=== PATIENT | female | born 1935 | race Caucasian/White ===

== ENCOUNTER 2016-08-27 13:27 | Inpatient (IN) | payer MEDICARE ==
[~2016-08-27] VITALS: Ht 170.2 cm; Wt 70.0 kg
--- NOTE | 2016-08-27 13:41 | ED.REPORT ---
HPI-General Illness Date of Service Aug 27, 2016 ED Provider: Jack Dejesus MD Pt is a demented 80 y/o female with a history of CVA who presents to ED via EMS for a fever. All history is from the family and EMS as the patient is demented and cannot provide any history. This is a patient who has a history of chronic CVAs, his nonambulatory, noncommunicative at baseline-the rest the family is wanted a retirement facility, but that the has declined, and has been having oil burner helped caring for. However today the fell and broke his hip and is being admitted, and the lipase was being checked on in the interim, she is to feel hot, and identified to have a temperature. So she was brought in. There are no other complaints, no known cough, shortness of breath , vomiting diarrhea-the patient does have a chronic indwelling Oneill, and history of a chronic sacral decubitus. The patient is on no medications. Nursing Notes Stated Complaint: SEPSIS Nursing Notes Reviewed: Yes ([employer], marianna, meds not reconciled CC is "SEPSIS ") General Time Seen by MD: 13:39 Chief Complaint Fever Hx Obtained From: Other family..., EMS Arrived By: Ambulance Sudden in Onset?: No Onset Occurred: Onset unknown Recent Healthcare: Recent hospitalization, Recent testing Past Medical History Past Medical History Notes: Family states patient is not on any medications Past Medical History History of debilitating stroke years ago, aphasic, with bilateral contractures, nonambulatory (patient fed via syringe by mouth, lives at home with oil burner support) History of decubitus Reports: Stroke Past Surgical History No known surgical history Smoking History Never Smoker Social History Was living with , with oil burner support-today 2016, patient's is being admitted for hip fracture. Family history requesting SNF placement POLST form is DNR/DNI in setting of arrest, otherwise limited intervetions Alcohol Use: Denies alcohol use (family) Drug Use: Denies drug use Other Social History: Good social support, Review of Systems Unable to Obtain ROS Patient condition Physical Exam Vital Signs Vital Signs Date Time Temp Pulse Resp B/P Pulse Ox O2 Delivery O2 Flow Rate FiO2 08/27/16 16:11 99 25 153/82 96 08/27/16 13:46 38.2 110 32 191/96 94 Room Air Initial VS: Reviewed, Unavailable (none on chart, ordered), Vital signs abnormal Head / Eyes: Atraumatic Neck: Supple, Non-tender, Full range of motion Abdomen / GI: Soft, Non-tender Extremities: Vascular intact, Neuro intact, No swelling, No tenderness Skin: Warm, Dry, No cyanosis Neurologic: Alert, Oriented, Nonfocal Alertness: Positive: Responds to pain stimuli, Negative: Responds to verb stimuli Appearance / Presentation: Positive: Cachectic Patient appears chronically ill, she is cachectic, she is debilitated with bilateral upper and lower extremity contractures. Her eyes or respond to voice, but opens her eyes to painful stimuli. Apparently is close to her baseline status. Although initial vitals is respiratory 35 she does not appear tachypneic or dyspneic clinically, in repeat vitals indicated respiratory rate of 15 Pt does not respond to verbal stimuli but responds to obnoxious stimuli. Patient is nonverbal at baseline, nonambulatory Head / Eyes: Atraumatic, Normocephalic Patient is edentulous with a withdrawn face Neck: Supple, Full range of motion, No swelling, Non-tender Respiratory / Chest: Breath sounds NL, No respiratory distress, No rales, No rhonchi, No wheezing Cardiovascular: Regular rhythm, Heart sounds NL, Cap refill not delayed, Peripheral circulation NL Heart Rate / Rhythm: Positive: Tachycardia (fever appropriate) Abdomen: Non-tender, No guarding, No rebound Upper Extremities Patient with contractures of both upper extremities Patient with contractures of both lower extremities and feet Interpretation & Diagnostics Lab Results Interpretation Result Diagram: 08/27/16 1455 08/27/16 1455 Test 08/27/16 14:55 08/27/16 15:40 White Blood Count 6.3th/mm3 (3.8-10.1) Red Blood Count 4.49mil/mm3 (3.90-5.20) Hemoglobin 13.7g/dL (12.0-15.6) Hematocrit 42.7% (35.0-46.0) Mean Corpuscular Volume 95.1fL (81-100) Mean Corpuscular Hemoglobin 30.5pg (27.0-35.0) Mean Corpuscular Hemoglobin Concent 32.1% (32.0-37.0) Red Cell Distribution Width 14.4% (12.3-15.4) Platelet Count 248bil/L (150-400) Neutrophils (%) (Auto) 85.7% (40-74) Lymphocytes (%) (Auto) 8.3% (14-46) Monocytes (%) (Auto) 5.1% (4-12) Eosinophils (%) (Auto) 0.2% (0-5) Basophils (%) (Auto) 0.5% (0-3) Sodium Level 136mEq/L (134-144) Potassium Level 4.7mEq/L (3.5-5.2) Chloride Level 101mEq/L (97-108) Carbon Dioxide Level 22mmol/L (18-29) Blood Urea Nitrogen 18mg/dL (8-27) Creatinine 0.37mg/dL (0.57-1.00) Estimat Glomerular Filtration Rate 241mL/min (>59) Glucose Level 136mg/dL (60-99) Lactic Acid Level 1.4mmol/L (0.4-2.0) Calcium Level 8.5mg/dL (8.5-10.1) Total Bilirubin 0.8mg/dL (0.0-1.2) Aspartate Amino Transf (AST/SGOT) 25U/L (0-50) Alanine Aminotransferase (ALT/SGPT) 20U/L (0-32) Alkaline Phosphatase 78U/L (25-165) Total Protein 6.3g/dL (6.4-8.4) Albumin 3.2g/dL (3.4-5.0) Urine Color Yellow (YELLOW) Urine Appearance Slightly cloudy Urine pH 7.0 (5.0-8.0) Urine Specific [place] 1.025 (1.003-1.035) Urine Protein 30mg/dL (NEG,TRACE) Urine Glucose (UA) Negativemg/dL (NEGATIVE) Urine Ketones Tracemg/dL (NEGATIVE) Urine Occult Blood Moderate (NEGATIVE) Urine Nitrite Positive (NEGATIVE) Urine Bilirubin Negative (NEGATIVE) Urine Urobilinogen Normalmg/dL (NORMAL) Urine Leukocyte Esterase Small (NEGATIVE) Urine RBC 3-10/hpf (0-2) Urine WBC 0-5/hpf (0-5) Urine Epithelial Cells None/hpf (NONE-MOD) Urine Crystals None seen (NONE SEEN) Urine Bacteria Moderate/hpf (NONE-FEW) Urine Hyaline Casts None/lpf (NONE) Urine Granular Casts None seen (NONE SEEN) Urine Waxy Casts None seen (NONE SEEN) Urine Red Blood Cell Casts None seen (NONE SEEN) Urine White Blood Cell Casts None seen (NONE SEEN) Urine Mucus None seen (None Seen) Urine Trichomonas None seen (NONE SEEN) Urine Yeast None (NONE SEEN) Urinalysis Comment None Urine Culture Reflexed Indicated Lab Results Interpretation: CBC normal CMP normal UA from Oneill, abnormal, positive bacteria, but is a chronic Oneill sample so cultures pending, difficult to interpret Blood cultures 2 pending Lactic acid normal Influenza positive FLu A NOTE: Patient's 's influenza A positive Influenza screen pending ECG Interpretation ECG Interpretation: Sinus tachycardia, Rate 112 Time: 14:11 Interpreted by: ED physician X-Ray Chest Interpretation Chest Xray Interpretation: IMPRESSION: No acute cardiopulmonary disease process within the limitations caused by patient's hand over the left lung base. Dictated by: Farzana Root MD, PhD on 08/27/2016 at 14:15 Approved by: Farzana Root MD, PhD on 08/27/2016 at 14:15 View: Portable, 1 view Re-Eval/Medical Decision Med Decision/Clinical Course This is a chronically debilitated 80-year-old female which the family is wanted to be in a retirement facility sometime, but that has been helping care for with oil burner assistance at home. However today the fell, broke his hip and is being admitted also to [facility]. Absent oil burner and family went to check on the (this patient), and found her febrile, so she was transported here as well. (Both live in [facility] was on divert), Patient is noncommunicative, with severe contractures, is fed apparently by liquid syringe. She is on no medications at baseline. Family is here and does request a retirement facility placement be evaluated obviously the is in no shape to care for her at this time. Initial vitals are quite concerning, and concern for the possibly of sepsis- with subsequent vitals are significantly improved. The patient has no laboratory markers of sepsis. Patient received a Tylenol suppository, systolically her she could take by mouth well. She will need is swallow eval, so I ordered a speech evaluation. Chest x-rays negative. Blood work is normal. Once the swab is pending. The differential also includes a UTI whic the family is concerned about, the patient does have a chronic Oneill making interpretation of UA difficult. Patient is being covered with ceftriaxone while waiting for formal urine cultures, It turns out the has influenza A, increasing probability of influenza as a potential cause. I am awaiting a speech evaluation and to help determine that the patient can actually receive oral Tamiflu. Patient is being admitted for continued management, and subsequent placement. Addendum: Patient positive for flu A. Page speech, but it turns out at the holiday they may not be available. I am not convinced the patient's a good candidate for by mouth Tamiflu at this time, I would wait speech approval prior to initiation. Source of Hx: Old records (none in EMR) Time of Eval: 15:45 Patient Status: Condition improved Re-Evaluation/Progress Note: Vitals are much improved, respirations 15, patient's not visibly tachypneic or dyspneic. Patient's husbands influence is positive increasing likelihood of influenza. Consultation : Referral / Consult Name: Alissa Bonilla MD Call Returned at: 16:02 Cotton Converter: Will see patient, Accepts admit Differential Diagnosis: Positive: Influenza, Negative: Abdominal pain, Allergies, Neutropenia, Pneumonia Counseled Regarding: Need for admission Discharge & Departure Primary Impression: Fever Fever type: unspecified Qualified Code: R50.9 - Fever, unspecified Additional Impressions: Influenza A UTI (urinary tract infection) Urinary tract infection type: catheter-associated UTI Encounter type: initial encounter Qualified Code: T83.51XA - Infection and inflammatory reaction due to indwelling urinary catheter, initial encounter Disposition: ADMITTED TO HOSPITAL Discharge Condition All VS Reviewed: Yes Condition: Stable Referrals: Shannan Doyle PA-C Attestation Portions of this note were transcribed by Chris Ellis and Gamaliel Galvez. I, Dr. Dejesus personally performed the history, physical exam and medical decision -making; I reviewed and confirmed the accuracy of the information in the transcribed note. Signed by:Chris Ellis and Brianda Mejia, 08/27/16 and 15:07. copies to: Shannan Doyle PA-C, Matthew F MD Aug 27, 2016 13:41 Chris Ellis Aug 27, 2016 13:58 GAMALIEL GALVEZ Aug 27, 2016 15:07
[2016-08-27 13:46] VITALS: BP 191/96; PULSE 110; RESP 32; O2SAT 94
--- NOTE | 2016-08-27 14:16 | DRSVH ---
PROCEDURE: X-RAY CHEST ONE VIEW, PORTABLE ([id number]) INDICATIONS: sepsis TECHNIQUE: One view of the chest was acquired. COMPARISON: None. FINDINGS: Surgical changes and devices: None. Lungs and pleura: No pleural effusions or pneumothorax. Lungs are clear. Left lung base is obscured by patient's left hand. Mediastinum: Mediastinal contours appear normal. Heart size is normal. Bones and chest wall: No suspicious bony lesions. Overlying soft tissues appear unremarkable. IMPRESSION: No acute cardiopulmonary disease process within the limitations caused by patient's hand over the left lung base. Dictated by: Farzana Root MD, PhD on 08/27/2016 at 14:15 Approved by: Farzana Root MD, PhD on 08/27/2016 at 14:15
[2016-08-27 15:11] LABS: BASOPHILS % (AUTO) 0.5 % (0-3); EOSINOPHILS % (AUTO) 0.2 % (0-5); MONOCYTES % (AUTO) 5.1 % (4-12); Mean Corpuscular Hemoglobin 30.5 pg (27.0-35.0); Mean Corpuscular Volume 95.1 fL (81-100); NEUTROPHILS % (AUTO) 85.7 % (40-74); Platelet Count 248 bil/L (150-400)
[2016-08-27] MEDS ORDERED: cefTRIAXone Inj 2,000 MG in IV Premix 1 EACH IV ONE (15:45)
[2016-08-27] MEDS ORDERED: 0.9% Sodium Chloride 1,000 ML IV ONE (15:45)
[2016-08-27 16:11] VITALS: BP 153/82; PULSE 99; RESP 25; O2SAT 96
[2016-08-27 16:25] LABS: APPEARANCE,URINE SLIGHTLY CLOUDY (CLEAR,HAZY); COLOR,URINE YELLOW (YELLOW); OCCULT BLOOD,URINE MODERATE (NEGATIVE)
[2016-08-27 16:26] LABS: UROBILINOGEN,URINE NORMAL (NORMAL)
[2016-08-27] MEDS ORDERED: [UNRECOGNIZED DRUG - REMARK] PO (16:54)
[2016-08-27 17:09] VITALS: BP 147/69; PULSE 91; RESP 26
[2016-08-27] MEDS ORDERED: Alum-Mag Hydrox-Simeth 30 mL Suspension PO PRN (17:25)
[2016-08-27] MEDS ORDERED: Ondansetron 2 mg/mL 2 mL Inj IVPUSH PRN (17:25)
[2016-08-27 18:27] VITALS: BP 165/74; PULSE 92; RESP 18; O2SAT 97
--- NOTE | 2016-08-27 18:39 | NUR ---
Admit/Skin Pt arrived to floor ~1745. non verbal d.t hx of cva; cleaned up and skin checked with EXCEL DEVELOPER (See admit.) Nino has odor. Report given to NOC shift to complete admit.
[2016-08-27 19:25] VITALS: BP 160/71; PULSE 88; RESP 17; O2SAT 95
--- NOTE | 2016-08-27 20:23 | PCM.HPMED ---
Subjective Date of Service Aug 27, 2016 Primary Provider: Admitting Physician: Alissa Bonilla MD Primary Care Physician: Caesar Denis MD Attending Physician: Alissa Bonilla MD Chief Complaint: HISTORY was OBTAINED FROM who is admitted for hip fracture / MEDITECH NOTES History of present illness 80-year-old female with CVAs/dementia/nonverbal/contractures/fed by mouth syringe by primary complex care nurse practitioner her , presented to the emergency department with fever 102, respiratory rate 25. EMS bolused 1 L normal saline. Indwelling Oneill is cloudy. indicates that she never has had UTIs. Has been does not seem to be the best historian as he is ill as well. In the ER 198/120, T102, respiratory rate 30s, sinus rhythm 112, no hypoxia. Chest x-ray negative, influenza positive since is also influenza positive Review of Systems unable to assess given that patient at baseline is nonverbal with dementia FAMILY HX of natural causes as indicated by her MEDICATIONS none Past Medical/Surgical HX History of debilitating stroke, aphasic, with bilateral contractures, nonambulatory (patient fed via syringe by mouth, lives at home with bi solutions architect support) History of decubitus Social no EtOH Allergies Coded Allergies: No Known Allergies (Unverified , 08/27/16) [facility] Social History Smoking Status: Never Smoker Exam Vital Signs Vital Sign - Last Date Time Temp Pulse Resp B/P Pulse Ox O2 Delivery O2 Flow Rate FiO2 08/27/16 18:27 37.3 92 18 165/74 97 Room Air Lab and Diagnostics Labs Exam on admission On room air NAD ASLEEP DOES NOT WAKE UP ON VERBAL COMMAND NC/AT no icterus no injected eyes PERRL / no oral lesions / hearing intact Supple neck CTAB equal chest rise / no accessory muscle use / speaks in full sentences / no rrw RRR S1 S2 / no mrg / 2+ radial pulses Soft nt nd + BS no hepatosplenomegaly Moderate edema buttocks/thighs, mild edema shins no cyanosis no ecchymosis of lower extremities No rash / no jaundice Chronic contracture appearing upper and lower extremities Oneill catheter urine is cloudy EKG SINUS RHYTHM [address] CHANGES CXR negative acute findings although obscured by contractured upper extremities UA nitrate positive Influenza A positive Result Diagram: 08/27/16 1455 08/27/16 1455 Assessment & Plan Active issues and reason for admission 80-year-old female, with baseline aphasia/contractures, admitted for sepsis due to UTI and Influenza A. Influenza A positive, contractured arm obscures chest x-ray findings --Tamiflu after speech evaluates patient -- Already on Rocephin for UTI -- Duo nebs UTI -- Change chronic indwelling catheter, pending urine culture Chronic issues known prior to admission, present on admission Debilitating CVA, bedbound, aphasic, contractured limbs Diet pending nutrition consult, pending speech consult, D5 1/2NS 20K 50cc/hr x500cc DVT prophylaxis lovenox Code DNR. POLST Form in chart Disposition pending speech therapy, baseline has been feeds her with syringe by mouth at home family indicated to the ER staff they would like long-term placement for the patient. has also been admitted (hip fracture and influenza pneumonia) who is her primary bi solutions architect Alissa Bonilla MD Aug 27, 2016 20:23 Assessment and plan were discussed with patient family. Alissa Bonilla MD Aug 27, 2016 20:23
[2016-08-27] MEDS: Oseltamivir 6 mg/mL 60 mL Suspension PO SCH (20:30)
[2016-08-27] MEDS: D5 0.45% NaCl + KCl 20 mEq/L 500 ML IV SCH (21:17)
[2016-08-27] MEDS: Albuterol-Ipratropium 3 mL Inhalation Solution NEB SCH (22:41)
[2016-08-27 22:44] VITALS: PULSE 68; RESP 22; O2SAT 96
[2016-08-28] VITALS (9 sets, daily range): BP systolic 123–151; BP diastolic 70–77; PULSE 68–94; RESP 16–22; O2SAT 93–97
[2016-08-28 05:48] LABS: BASOPHILS % (AUTO) 0.3 % (0-3); EOSINOPHILS % (AUTO) 0 % (0-5); MONOCYTES % (AUTO) 10.5 % (4-12); Mean Corpuscular Hemoglobin 30.6 pg (27.0-35.0); Mean Corpuscular Volume 94.5 fL (81-100); NEUTROPHILS % (AUTO) 71.7 % (40-74); Platelet Count 244 bil/L (150-400)
--- NOTE | 2016-08-28 05:53 | NUR ---
Skin care Initiated pressure ulcer protocol for multiple areas of concern on skin, all covered with Mepilex. Q2 hour turns, pt is has severe contractures and unable to assist with any movement. Heels floated on pillows. Indwelling maloney changed per order. Strict NPO status until swallow eval; baseline is that sericulture teacher feeds pt with pureed food via syringe. IV fluids infusing. Pt shows no signs of discomfort or distress, occasional cough or throat sounds. Frequent rounding as pt unable to access call light due to immobility.
[2016-08-28] MEDS: D5 0.45% NaCl + KCl 20 mEq/L 500 ML IV SCH (06:14)
[2016-08-28] MEDS: Albuterol-Ipratropium 3 mL Inhalation Solution NEB SCH ×4 (07:33→20:01)
[2016-08-28] MEDS: Oseltamivir 6 mg/mL 60 mL Suspension PO SCH ×2 (08:30→22:13)
--- NOTE | 2016-08-28 10:56 | NUR ---
Evaluation completed. Please go to "Notes" then click on "Assessments and Notes" (bottom left corner of screen). Then select appropriate discipline tab on top of screen.
[2016-08-28] MEDS ORDERED: Vancomycin 1 Gm/200 mL D5W Premix IV SCH (11:00)
[2016-08-28] MEDS: D5 0.45% NaCl + KCl 20 mEq/L 1,000 ML IV SCH (11:17)
--- NOTE | 2016-08-28 12:58 | NUR ---
SKIN/MEDS Patient was seen by [facility]Damon Morrison Pressure ulcers on her RLE and sacral area (Stage 2) was assessed and dressing was changed by [facility]. Pressure ulcers are present on admit. Turned and repositioned Q 2 hrs. Seen and examined by SPT. She continues to be NPO. Meds are withheld. Dr. Morales is aware of this. Care continues.
--- NOTE | 2016-08-28 15:14 | NUR ---
NUTRITION ASSESSMENT: ASSESS: Pt is an 80yo F admitted for sepsis due to UTI and influenza A. Pt is non-verbal at baseline and has chronic dysphagia. Per H&P, pt is fed by her via a syringe w/pureed foods. ST has evaluated pt and made her strict NPO. Received written orders per Dr. Morales to start TF. PMHX: CVA, Dementia LABS: Reviewed. Manufacturing Baker .37, Glu 134, Ca 8.1, Alb 2.9 MEDS: Reviewed. GI: BMx1 08/28 SKIN: Tello 6. Stg 2 PU on RLE and sacral area CURRENT WTS: 50.8kg, BMI 17.5kg/m2 DIET: strict NPO per EST. NEEDS: wt gain, stg 2 PU Kcals: 1525-1780kcal/day (30-35kcal/kg) Pro: 60-75g/day (1.2-1.5g/kg) Fluids: 1525ml/day (1ml/kcal/kg) NUTRITION DIAGNOSIS: 1.) Inadequate oral intake related to decreased ability to consume sufficient energy as evidenced by current NPO status and need for TF to provide adequate nutrition 2.) Chew/swallow difficulty related to chronic aphasia and dysphagia as evidence by strict NPO diet order per NUTRITION INTERVENTION: 1.) Received orders per Dr. Morales to start TF. Recommend Jevity 1.5 @50ml/hr to provide 1725kcal and 73g pro (100% estimated needs). As pt has likely not received adequate nutrition prior to admit, recommend start TF at 10ml/hr and slowly advance towards goal by 10ml q 6 hrs. Flush 40ml q 4 hrs while on IVF. If IVF stopped, recommend increase fluid flush to 85ml q 3hrs. 2.) Diet advance per . MONITOR / EVAL: NPO, ST, TF start/dwayne, labs, wt, POC, nutrition status. Will continue to monitor per high nutrition risk guidelines.
--- NOTE | 2016-08-28 15:19 | NUR ---
Wound Care Pressure ulcer protocol received, Pt seen at bedside. Noncommunicative bedbound female on a [facility] bed, wrist and elbows in a contracted state as are her ankles.. She has been cared for in her home by her who has now fallen and broken his hip. Skin issues include. Right posterior calf Stage 2 PU 1 cm x 0.5 cm x 0.2 cm (POA). Sacral stage 2 PU, 1 cm x 2 cm x 0.2 cm (POA). Both wounds were cleaned with saline and gauze then redressed with mepilex adhesive foam dressings. Pt had no other pressure related skin issues, pt was incontinent of stool so sacral dressings will need to be changed PRN for soiling. Otherwise heels to be floated, frequent repositioning and dressing changes by nursing.
[2016-08-28] MEDS: cefTRIAXone Inj 1,000 MG in IV Premix 1 EACH IV SCH (15:29)
--- NOTE | 2016-08-28 15:50 | PCM.PHAPRO ---
Progress Vancomycin Management by Pharmacy: -Indication: empiric therapy for + blood cultures, g+ cocci, staph? -Concurrent antibiotics: Ceftriaxone 1gm iv q24hrs for uti on admission -80 yo female admitted last night, positive for influenza A -slight temp, wbc 3.4, serum creatinine 0.37, est clearance ~ 45ml/min, wt 50kg -Plan: gave a loading dose of Vancomycin 1gm at 11 am today. Subsequent doses shall be 750mg iv [id number] Trough level shall be drawn prior to 4th dose (1030 on 08/31) or sooner if serum creatinine elevates Rianna Denis [facility] Aug 28, 2016 15:50
--- NOTE | 2016-08-28 16:49 | DRSVH ---
PROCEDURE: X-RAY CHEST ONE VIEW, PORTABLE ([id number]) INDICATIONS: CONFIRM DOBHOF TUBE PLACEMENT TECHNIQUE: One view of the chest was acquired. COMPARISON: [facility], CR, XR CHEST 1VW (PORTABLE), 08/27/2016, 13:53. FINDINGS: Surgical changes and devices: Interval placement of feeding tube is present with distal tip below the left hemidiaphragm. Lungs and pleura: No pleural effusions or pneumothorax. Lungs are clear, noting incomplete evaluati on of left base secondary to patient's overlying hand.. Mediastinum: Mediastinal contours appear normal. Heart size is normal. Bones and chest wall: No suspicious bony lesions. Overlying soft tissues appear unremarkable. IMPRESSION: Feeding tube placement as above. Dictated by: Astrid Avalos M.D. on 08/28/2016 at 16:47 Approved by: Astrid Avalos M.D. on 08/28/2016 at 16:47
--- NOTE | 2016-08-28 19:50 | NUR ---
GI/ACTIVITY Feeding tube was inserted by Jacklyn Cochran RN. CXR done. Dr. Morales made aware. Per MD advance FT 6 more inches. FT advanced as ordered and tube feeding started. CXR in the morning. Via FELDT scale patients pain level is 0/10. No emesis noted. Turned and repositioned Q 2 hrs. Dressing in her sacral area and RLE is CDI. IFC intact and draining to kristal colored UO. Addendum: 08/28/16 at 1958 by SARBJIT REED RN CRITICAL LAB Dr. Morales made aware of + blood cultures this AM and this evening. Patient was started on IV Vanco this morning.
--- NOTE | 2016-08-28 22:51 | PCM.PNMED ---
Subjective Date of Service Aug 28, 2016 Subjective Patient is poorly responsive laying supine in bed with flexion contractures. Exam Vital Signs Vital Sign - Last Date Time Temp Pulse Resp B/P Pulse Ox O2 Delivery O2 Flow Rate FiO2 08/28/16 20:41 37.3 94 16 127/70 96 Room Air Intake and Output 08/27/16 08/27/16 08/28/16 Cumulative From/Thru 15:00 23:00 07:00 08/27/16 16:30 - 08/28/16 06:40 Intake Total 950 ml 1056 ml 2006 ml Output Total 500 ml 500 ml Balance 950 ml 556 ml 1506 ml Intake Oral 0 ml 0 ml IV Total 950 ml 1056 ml 2006 ml Output Urine Total 500 ml 500 ml # Bowel Movements 1 1 Exam General: Patient is poorly responsive, laying supine in bed with flexion contractures HEENT: Head is atraumatic normocephalic. Eyes: Pupils are equally round and reactive to light and accommodation. Extraocular muscles could not be tested. Sclera are white anicteric. Subconjunctival mucosa is pink. Ears and nose are unremarkable. Oropharynx: Is very difficult to visualize. Neck: Is fairly supple, there are no nodes, or masses or tenderness. Chest: Sounds are very coarse with upper airway congestion. Therefore, difficult to discern type of lower adventitious sounds Heart: Rate, rhythm is regular. There is no murmur, rub or gallop. Abdomen: Good bowel sounds are present. Abdomen is soft, nontender, no organomegaly or masses were appreciated. Extremities: Are symmetrical and well perfused. There is no edema, there is no cellulitis, no rash. Neurologic: There are no focal neurological deficits. Cranial nerves II through XII are intact. There are no sensory or motor deficits. Psychiatric: Patients mood is calm and shows no sign of agitation. Genital: Deferred Rectal: Deferred Lab and Diagnostics Result Diagram: 08/28/16 0500 08/28/16 0453 Microbiology Microbiology GUSTAVO INFLUENZA RAPID AG SCREEN Final 08/27/16-1623 RESULT POSITIVE FOR FLU A NEGATIVE FOR FLU B This rapid assay is a screen test only for Influenza A&B and does not definitively rule out the presence of FLU A & B or other respiratory viral pathogens. The assay's sensitivity varies on the specimen type submitted. Nasal washes are optimum. Recommend respiratory viral cultures and DFA to confirm negative screens and rule out other viral pathogens. Per CDC, the sensitivity of this method is approximately 50% for H1N1. A negative result does NOT rule out Novel H1N1 (Swine Flu) TIME CALLED: 1623 FLOOR/DOCTOR: DEEPAK Sanz Name: EMMA LOPEZ Age/Sex: 80/F Attend Dr: Hoang Bonilla MD Acct: [id number] Unit: [id number] Status: ADM IN Location: [facility] [place] 1005-1 Re08/27/16 Disch: Specimen: [id number] Collected: 08/27/16 Status: COMP Req#: [id number] Received: 08/27/16160 Source: URINE CC Sp Desc : DELMY Justice Dr: Jack Dejesus MD Ordered: URINE CULT Procedure Result Verified Site Microbiology GUSTAVO CULT URINE Final 08/28/16-0909 Organism 1 MIXED UROGENITAL CORETTA U COLONY COUNT/QUANTITY 50,000-100,000 CFU/ml Name: EMMA LOPEZ Age/Sex: 80/F Attend Dr: Hoang Bonilla MD Acct: [id number] Unit: [id number] Status: ADM IN Location: [facility] 1005-1 Re08/27/16 Disch: Specimen: [id number] Collected: 08/27/16 Status: RES Req#: [id number] Received: 08/27/16-160 Source: BLOOD Sp Desc : AA Subm Dr: Jack Dejesus MD Ordered: Comments: Collected by Nurse/Unit? Y/N N Procedure Result Verified Site Microbiology GUSTAVO CULTURE BLOOD Preliminary 08/28/16-180 Organism 1 POSITIVE BLOOD CULTURE GRAM STAIN RESULT GRAM POSITIVE COCCI ?STAPH BC BOTTLE Isolated from Aerobic Bottle of Set Drawn DATE CALLED: 08/28/16 TIME CALLED: 0948 CALLED BY: MACIEJ FLOOR/DOCTOR: FRANCIS Barbosa BC READ BACK Y TYPE OF DRAW PERIPHERAL DRAW TIME OF POSITIVITY 0915 GRAM STAIN RESULT GRAM POSITIVE COCCI ?STAPH BC BOTTLE2 Isolated from Anaerobic Bottle of Set Drawn DATE CALLED: 08/28/16 TIME CALLED: 175 CALLED BY: MILENA FLOOR/DOCTOR: FRANCIS/SARBJIT Frances BC READ BACK YES TYPE OF DRAW PERIPHERAL DRAW TIME OF POSITIVITY 1744 X-Rays, CTs and MRIs PROCEDURE: X-RAY CHEST ONE VIEW, PORTABLE ([id number]) INDICATIONS: CONFIRM DOBHOF TUBE PLACEMENT TECHNIQUE: One view of the chest was acquired. COMPARISON: [facility], CR, XR CHEST 1VW (PORTABLE), 08/27/2016, 13: 53. FINDINGS: Surgical changes and devices: Interval placement of feeding tube is present with distal tip below the left hemidiaphragm. Lungs and pleura: No pleural effusions or pneumothorax. Lungs are clear, noting incomplete evaluation of left base secondary to patient's overlying hand.. Mediastinum: Mediastinal contours appear normal. Heart size is normal. Bones and chest wall: No suspicious bony lesions. Overlying soft tissues appear unremarkable. IMPRESSION: Feeding tube placement as above. Dictated by: Astrid Avalos M.D. on 08/28/2016 at 16:47 Assessment & Plan Active issues and reason for admission 80-year-old female, with baseline aphasia/contractures, admitted for sepsis due to UTI and Influenza A. Influenza A positive, contractured arm obscures chest x-ray findings --Tamiflu after speech evaluates patient or after feeding tube is place. -- Already on Rocephin for UTI -- Continue Duo neb treatments Bacteremia with gram-positive cocci -- Could be due to pneumonia superinfection after influenza A. -- Could be due to urinary tract infection with bacteremia -- Could be due to contaminant with coag-negative staph -- Continue Rocephin -- Advised vancomycin per pharmacy pending cultures -- Check final culture result UTI -- Change chronic indwelling catheter, pending urine culture -- Check final culture results Chronic issues known prior to admission, present on admission: --Debilitating CVA, bedbound, aphasic, contractured limbs Aspiration risk -- Continue D5 1/2NS with 20K at 75 mL an hour -- Nursing staff to place a duotube feeding tube. Start tube feeding at 10 mL an hour taking residuals every 4 hours. Will ask nutritional services to recommend type of nutritional supplement and tube feeding rate DVT prophylaxis lovenox . GI prophylaxis with Protonix. Code DNR. POLST Form in chart Disposition At baseline has been feeds her with syringe by mouth at home. The family indicated to the ER staff they would like long-term placement for the patient. has also been admitted (hip fracture and influenza pneumonia) who is her primary computer engineering technologist Pain Evaluation: Adequate Pain Control GI Prophylaxis: Proton Pump Inhibitor VTE Prophylaxis: Sub-Q Enoxaparin Resuscitation Status: DNR/DNI:Do Not Resuscitate/Intubate Geovanny Morales MD Aug 28, 2016 22:51
[2016-08-29] VITALS (9 sets, daily range): BP systolic 125–153; BP diastolic 74–82; PULSE 8–90; RESP 16–23; O2SAT 92–98
[2016-08-29] MEDS: D5 0.45% NaCl + KCl 20 mEq/L 1,000 ML IV SCH ×2 (03:57→19:30)
--- NOTE | 2016-08-29 04:10 | NUR ---
Tube feed / meds Tolerating tube feeding through dobhoff tube placed today and verified with xray, minimal residuals. Meds given via tube, pt has been strict NPO; first dose of Tamiflu able to be administered. Q2 hour turns for skin care, no evidence of discomfort. Hourly rounding ongoing.
--- NOTE | 2016-08-29 05:50 | NUR ---
Daily Weight Pt moved to new P500 bed, weight is inconsistent with prior weights. Beginning scale weight recorded today, make reference to changed from this weight. See EMR for current value.
[2016-08-29 06:04] LABS: BASOPHILS % (AUTO) 0.5 % (0-3); EOSINOPHILS % (AUTO) 0 % (0-5); MONOCYTES % (AUTO) 14.1 % (4-12); Mean Corpuscular Hemoglobin 31.1 pg (27.0-35.0); Mean Corpuscular Volume 93.8 fL (81-100); NEUTROPHILS % (AUTO) 55.5 % (40-74); Platelet Count 233 bil/L (150-400)
[2016-08-29 06:32] LABS: Magnesium 1.8 mg/dL (1.6-2.6); Phosphorus 2.5 mg/dL (2.5-4.9)
[2016-08-29] MEDS: Pantoprazole 4 mg/mL 10 mL Inj IVPUSH SCH (06:34)
[2016-08-29 07:09] LABS: ERYTHROCYTE SEDIMENTATION RATE 17 mm/hr (0-40)
[2016-08-29] MEDS: Vancomycin Dose per Pharmacist XX SCH (08:30)
--- NOTE | 2016-08-29 08:30 | NUR ---
Social Work Initial Assessment SW met with patient and family at bedside to discuss discharge plan. Patient is a 80 year old female admitted on 08/27/16 for fever and chronic maloney. Patient payer as [employer]. 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 Patient PCP as MD Denis. Patient has AD and SW encouraged family to bring in copy. Patient resides with in [place]. Patient's is patient's primary watch inspector. Patient receives caregivers services via [facility] and [facility] registry, . Patient receives services on //. Patient also current with [employer]. Pharmacy of choice as [facility]. Patient has no previous HHC or SNF history. Patient has a walker and wheelchair at home for use. SNF options discussed with patient and family. Choice list and community resource handbook provided. Due to patient and her 's current admissions, SW to begin SNF placement arrangements upon discharge. SW to follow for choice once determined. SW to follow. PLAN: SW to follow for possible SNF plans for patient and , pending PT eval/order and clinical course Max HERNANDEZ Addendum: 08/29/16 at 0835 by RAINE OWUSU Amended: Links added.
[2016-08-29] MEDS: cefTRIAXone Inj 1,000 MG in IV Premix 1 EACH IV SCH (08:48)
[2016-08-29] MEDS: Albuterol-Ipratropium 3 mL Inhalation Solution NEB SCH ×4 (08:59→20:00)
--- NOTE | 2016-08-29 10:00 | DRSVH ---
PROCEDURE: X-RAY CHEST ONE VIEW, PORTABLE ([id number]) INDICATIONS: DUBHOFF PLACMENT VERIFICATION TECHNIQUE: One view of the chest was acquired. COMPARISON: [facility], CR, XR CHEST 1VW (PORTABLE), 08/27/2016, 13:53. [facility], CR, XR CHEST 1VW (PORTABLE), 08/28/2016, 16:05. FINDINGS: This patient's forearms and hands overlie the the lower chest, somewhat limiting evaluatio n. Surgical changes and devices: A weighted feeding tube is seen, with the tip coiled overlying the mid stomach. This is slightly advanced compared to the prior examination dated 08/28/16. Lungs and pleura: On this semiupright portable chest examination, no large pneumothorax or large ple ural effusions are seen. No focal infiltrates are seen. The lung apices are not included within the [id number] of this study, which was performed to evaluate for the position of the feeding tube. Mediastinum: The cardiac contours are within normal limits. The aorta demonstrates calcification and tortuosity. Bones and chest wall: No suspicious bony lesions. Age-appropriate bony degenerative changes are see n. Overlying soft tissues appear unremarkable. IMPRESSION: The tip of the weighted feeding tube is seen overlying the mid stomach, which is progress ed compared to the prior. Dictated by: Ramon Zavala M.D. on 08/29/2016 at 8:58 Approved by: Ramon Zavala M.D. on 08/29/2016 at 8:58
--- NOTE | 2016-08-29 11:21 | NUR ---
Social Work Discharge Planning: SW spoke to patient son/CHUCK Sanches to discuss discharge plan of care for patient and SNF choice. List reviewed by family and choice as [facility]. SW requested that UR specialist send referral to mentioned facilities for possible SNF acceptance. PT order requested in rounds. SW to follow. PLAN: Referrals sent to [facility] for possible acceptance. SW to follow. Max HERNANDEZ
[2016-08-29] MEDS: Oseltamivir 6 mg/mL 60 mL Suspension PO SCH ×2 (11:37→22:11)
--- NOTE | 2016-08-29 15:17 | NUR ---
Faxed referral to [facility] and Rafael Hardwick per PROSTHODONTIST/OWNER
--- NOTE | 2016-08-29 16:20 | NUR ---
spiritual care: pt request relayed caring strategy to worship eucharistic visitor per 's suggestions. caring presence (quiet bedside conversation and prayer) continuing during pt's stay.
--- NOTE | 2016-08-29 17:19 | PCM.PNMED ---
Subjective Date of Service Aug 29, 2016 Subjective Patient was seen and examined today. Patient is still minimally responsive and contracted in all 4 limbs. There were no family members at bedside and nursing stated that there were no new concerns. Patient currently tolerating tube feeding. Exam Vital Signs Vital Sign - Last Date Time Temp Pulse Resp B/P Pulse Ox O2 Delivery O2 Flow Rate FiO2 08/29/16 05:27 37.3 87 23 153/82 98 Room Air Intake and Output 08/28/16 08/28/16 08/29/16 Cumulative From/Thru 15:00 23:00 07:00 08/27/16 16:30 - 08/29/16 06:29 Intake Total 798 ml 1295 ml 4099 ml Output Total 355 ml 192 ml 1047 ml Balance 443 ml 1103 ml 3052 ml Intake Oral 0 ml 0 ml IV Total 798 ml 926 ml 3730 ml Tube Feeding 209 ml 209 ml Tube Irrigant 160 ml 160 ml Output Urine Total 350 ml 175 ml 1025 ml Gastric Drainage Total 5 ml 17 ml 22 ml # Bowel Movements 1 2 Exam Physical Exam: GEN: Patient was awake, not responsive to questioning, no signs of acute distress HEENT: PERRLA, Neck soft supple, trachea midline, nomocephalic/atraumatic, NG tube in place CV: +S1/S2, RRR, no murmurs auscultated Respiratory: Coarse breath sounds, difficulty auscultating secondary to rhonchorous breathing/sounds GI: +bowel sounds x4, soft, compressible EXT: No clubbing or cyanosis, +2 pitting edema bilaterally in the feet Musculoskeletal: Positive contractures in the upper and lower extremities bilaterally Psych: Patient minimally responsive IVs and Medications Medications Reviewed: Medications were reviewed in detail Medications Current Medications Al Hydrox/Mg Hydrox/Simethicone 30 ml Q6 PRN PO; Start 08/27/16 at 17:25 Ondansetron HCl Dose range: 4 mg to 8 mg Q4H PRN IVPUSH; Start 08/27/16 at 17: 25 Acetaminophen 975 mg Q6H PRN PO; Start 08/27/16 at 17:25 Enoxaparin Sodium 40 mg 40 mg DAILY SUBQ Last administered on 08/28/16t 08:30; Admin Dose 40 MG; Start 08/28/16 at 08:30 Potassium Chloride/Dextrose/ Sod Cl 500 ml @ 50 mls/hr Q10H IV Last administered on 08/27/16 21:17; Admin Dose 50 MLS/HR; Start 08/27/16 at 20:14; Stop 08/28/16 at 10:34; Status DC Aspirin 300 mg DAILY PRN RECTAL; Start 08/27/16 at 20:15 Oseltamivir Phosphate 30 mg BID PO Last administered on 08/28/16 22:13; Admin Dose 30 MG; Start 08/27/16 at 20:30; Stop 09/01/16 at 08:31 Albuterol/ Ipratropium 3 ml 3 ml QIDWA NEB Last administered on 08/28/16 20:01 ; Admin Dose 3 ML; Start 08/27/16 at 21:00 Ceftriaxone Sodium/Dextrose 1000 mg/Premix 50 ml @ 100 mls/hr Q24 IV Last administered on 08/28/16 15:29; Admin Dose 100 MLS/HR; Start 08/28/16 at 16:00 Vancomycin HCl/ Dextrose 1000 mg/ Premix 200 ml @ 133.333 mls/hr Q24H IV Last administered on 08/28/16 11:16; Admin Dose 133.333 MLS/HR; Start 08/28/16 at 11 :00; Stop 08/28/16 at 15:00; Status DC Potassium Chloride/Dextrose/ Sod Cl 1,000 ml @ 75 mls/hr [id number] IV Last administered on 08/29/16 03:57; Admin Dose 75 MLS/HR; Start 08/28/16 at 10:40 Pharmacy Consult 1 ea 1 ea DAILY XX; Start 08/29/16 at 08:30 Vancomycin HCl/ Dextrose/Water 250 ml @ 166.667 mls/hr Q24H IV; Start 08/29/16 at 11:00 Pantoprazole 40 mg DAILYAC IVPUSH Last administered on 08/29/16 06:34; Admin Dose 40 MG; Start 08/29/16 at 07:30 Lab and Diagnostics Result Diagram: 08/29/16 0503 08/29/16 0503 Microbiology Microbiology GUSTAVO INFLUENZA RAPID AG SCREEN Final 08/27/16-1623 RESULT POSITIVE FOR FLU A NEGATIVE FOR FLU B This rapid assay is a screen test only for Influenza A&B and does not definitively rule out the presence of FLU A & B or other respiratory viral pathogens. The assay's sensitivity varies on the specimen type submitted. Nasal washes are optimum. Recommend respiratory viral cultures and DFA to confirm negative screens and rule out other viral pathogens. Per CDC, the sensitivity of this method is approximately 50% for H1N1. A negative result does NOT rule out Novel H1N1 (Swine Flu) TIME CALLED: 1623 FLOOR/DOCTOR: SAVANNAH/NAREN Sanz Name: EMMA LOPEZ Age/Sex: 80/F Attend Dr: Hoang Bonilla MD Acct: [id number] Unit: [id number] Status: ADM IN Location: [place] [address] Re08/27/16 Disch: Specimen: [id number] Collected: 08/27/16 Status: COMP Req#: [id number] Received: 08/27/16 Source: URINE CC Sp Desc : DELMY Justice Dr: Jack Dejesus MD Ordered: URINE CULT Procedure Result Verified Site Microbiology GUSTAVO CULT URINE Final 08/28/16-908 Organism 1 MIXED UROGENITAL DEREK U COLONY COUNT/QUANTITY 50,000-100,000 CFU/ml Name: EMMA LOPEZ Age/Sex: 80/F Attend Dr: Hoang Bonilla MD Acct: [id number] Unit: [id number] Status: ADM IN [place] [facility]-1 Re08/27/16 Disch: Specimen: [id number] Collected: 08/27/16 Status: RES Vinod#: [id number] Received: 08/27/16160 Source: BLOOD Sp Desc : ROB Justice Dr: Jack Dejesus MD Ordered: Comments: Collected by Nurse/Unit? Y/N N Procedure Result Verified Site Microbiology GUSTAVO CULTURE BLOOD Preliminary 08/28/16-180 Organism 1 POSITIVE BLOOD CULTURE GRAM STAIN RESULT GRAM POSITIVE COCCI ?STAPH BC BOTTLE Isolated from Aerobic Bottle of Set Drawn DATE CALLED: 08/28/16 TIME CALLED: 0948 CALLED BY: MACIEJ FLOOR/DOCTOR: FRANCIS Barbosa BC READ BACK Y TYPE OF DRAW PERIPHERAL DRAW TIME OF POSITIVITY 0915 GRAM STAIN RESULT GRAM POSITIVE COCCI ?STAPH BC BOTTLE2 Isolated from Anaerobic Bottle of Set Drawn DATE CALLED: 08/28/16 TIME CALLED: 1758 CALLED BY: MILENA FLOOR/DOCTOR: FRANCIS/SARBJIT Frances BC READ BACK YES TYPE OF DRAW PERIPHERAL DRAW TIME OF POSITIVITY 1744 X-Rays, CTs and MRIs PROCEDURE: X-RAY CHEST ONE VIEW, PORTABLE ([id number]) INDICATIONS: CONFIRM DOBHOF TUBE PLACEMENT TECHNIQUE: One view of the chest was acquired. COMPARISON: [facility], CR, XR CHEST 1VW (PORTABLE), 08/27/2016, 13: 53. FINDINGS: Surgical changes and devices: Interval placement of feeding tube is present with distal tip below the left hemidiaphragm. Lungs and pleura: No pleural effusions or pneumothorax. Lungs are clear, noting incomplete evaluation of left base secondary to patient's overlying hand.. Mediastinum: Mediastinal contours appear normal. Heart size is normal. Bones and chest wall: No suspicious bony lesions. Overlying soft tissues appear unremarkable. IMPRESSION: Feeding tube placement as above. Dictated by: Astrid Avalos M.D. on 08/28/2016 at 16:47 Assessment & Plan 80-year-old female, with baseline aphasia/contractures, admitted for sepsis due to UTI and Influenza A. Influenza A positive, contractured arm obscures chest x-ray findings -- Continue Tamiflu via feeding tube. -- Continue Duo neb treatments Bacteremia with gram-positive cocci -- Could be due to pneumonia superinfection after influenza A. -- Could be due to urinary tract infection with bacteremia -- Continue Rocephin -- Continue vancomycin for further coverage as per pharmacy -- Blood cultures show gram-positive staphylococci sensitivities pending UTI -- Currently on Rocephin -- Chronic indwelling catheter changed -- Urine cultures showed mixed urogenital derek Hyponatremia -- Sodium 133 -- Continue IV fluids, continue tube feeding -- Hyponatremia may be secondary to malnutrition, however now that the patient has started tube feedings this should correct Functional quadriplegia present on admission --Debilitating CVA, bedbound, aphasic, contractured limbs -- PT consulted and would appreciate any recommendations Aspiration risk -- Continue D5 1/2NS with 20K at 75 mL an hour -- NG tube in place continue recommendations from nutritional services. DVT prophylaxis lovenox . GI prophylaxis with Protonix. Code DNR. POLST Form in chart Disposition patient's primary technology training associate is also in the hospital. Family is seeking long-term placement at this time. Case management is currently seeking placement. GI Prophylaxis: Proton Pump Inhibitor VTE Prophylaxis: Sub-Q Enoxaparin Resuscitation Status: DNR/DNI:Do Not Resuscitate/Intubate Ladan Zavala DO Aug 29, 2016 07:19
--- NOTE | 2016-08-29 19:43 | NUR ---
Arousal Pt difficult to arouse this AM. Nailbed pinch awakened pt. Pt more easily awakened rest of shift. Spoke to pt's , confirms pt's non verbal status. At home he just explains everything to her. She will make a grunt like noise when in pain. Passed on to evening shift. Bed down locked call light w/in reach. [id number]
[2016-08-30] VITALS (7 sets, daily range): BP systolic 114–131; BP diastolic 64–80; PULSE 60–96; RESP 16–24; O2SAT 90–99
--- NOTE | 2016-08-30 02:28 | NUR ---
Activity Able to arouse patient during assessment without painful stimuli. Patient would open eyes, but not meet gaze, and is non verbal. IV is currently infusing D5 1/2 NS w/ 20 K @75cc/hr. Tube feeding has reached goal of 50cc/hr, and has a flush of 40cc Q4 hours. Checking for tube feeding residuals Q4 is being completed. Last residual check at approx 2340 was 10cc. Patient appears to be tolerating tube feeding well. Q2 turns preformed, heels are floated, and rolled up towels are placed within the patients hands. Patients head is frequently being repositioned on pillow to prevent pressure on right ear as much as possible. Patient is unable to maintain head at midline or tilted to the left side. Chronic maloney is draining yellow urine to gravity, and brief is being worn. Will continue care, and continue Q1 hour checks. Addendum: 08/30/16 at 0304 by AUDRA JHAVERI RN Bilateral feet and ankles are edematous. L>R. Pitting edema is noted, and skin is taught. .
[2016-08-30] MEDS: D5 0.45% NaCl + KCl 20 mEq/L 1,000 ML IV SCH ×2 (02:40→08:27)
[2016-08-30] MEDS: Albuterol-Ipratropium 3 mL Inhalation Solution NEB SCH ×4 (07:37→21:00)
--- NOTE | 2016-08-30 08:17 | NUR ---
Spoke with Bina at [facility] in [place] and she is able to accept patient pending auth for insurance. Updated PROFESSOR OF ART
[2016-08-30] MEDS: Vancomycin Dose per Pharmacist XX SCH (08:30)
[2016-08-30] MEDS: Pantoprazole 4 mg/mL 10 mL Inj IVPUSH SCH (08:35)
[2016-08-30] MEDS: Oseltamivir 6 mg/mL 60 mL Suspension PO SCH ×2 (08:40→20:52)
[2016-08-30] MEDS: cefTRIAXone Inj 1,000 MG in IV Premix 1 EACH IV SCH (08:41)
--- NOTE | 2016-08-30 10:35 | NUR ---
NUTRITION FOLLOW-UP: ASSESS: Pt is an 80yo F admitted for sepsis due to UTI and influenza A. Pt is non-verbal at baseline and has chronic dysphagia. Per H&P, pt is fed by her via a syringe w/pureed foods. has evaluated pt and made her strict NPO. TF was started 08/28 and are now running at goal of 50ml/hr and tolerating well with minimal residuals. There has been some inconsistency with pt's wt due to different beds. Pt's current wt is 15kg higher than admit wt. PMHX: CVA, Dementia LABS: Reviewed. Na 133, New Client Banking Services Clerk .43, Glu 126, Ca 8.1, Alb 2.8 MEDS: Reviewed. GI: BMx2 08/29 SKIN: Tello 6. Stg 2 PU on RLE and sacral area CURRENT WTS: 65.4kg, BMI 22.6kg/m2, admit wt 50.8kg (wt difference due to different bed scales) NUTRITION SUPPORT: Jevity 1.5 @ goal rate of 50ml/hr to provide 1725kcal and 73g pro (100% estimated needs) DIET: strict NPO per EST. NEEDS: stg 2 PU Kcals: 1960-2290kcal/day (30-35kcal/kg) Pro: 75-100g/day (1.2-1.5g/kg) Fluids: 1950ml/day (1ml/kcal/kg) NUTRITION DIAGNOSIS: 1.) Inadequate oral intake related to decreased ability to consume sufficient energy as evidenced by current NPO status and need for TF to provide adequate nutrition--IMPROVING 2.) Chew/swallow difficulty related to chronic aphasia and dysphagia as evidence by strict NPO diet order per --PERSISTS NUTRITION INTERVENTION: 1.) Due to change in pt's wt, recommend increase goal rate Jevity 1.5 to 60ml/hr to provide 2070kcal and 88g pro (100% estimated needs). Flush 40ml q 4 hrs while on IVF. If IVF stopped, recommend increase fluid flush to 85ml q 3hrs. 2.) Diet advance per . MONITOR / EVAL: ST, TF to goal/dwayne, labs, wt, POC, nutrition status. Will continue to monitor per high nutrition risk guidelines.
[2016-08-30 10:36] LABS: Mean Corpuscular Hemoglobin 30.1 pg (27.0-35.0); Mean Corpuscular Volume 94.2 fL (81-100)
--- NOTE | 2016-08-30 11:14 | NUR ---
Evaluation completed. Please go to "Notes" then click on "Assessments and Notes" (bottom left corner of screen). Then select appropriate discipline tab on top of screen.
--- NOTE | 2016-08-30 11:19 | NUR ---
Palliative Care Palliative Care received verbal order from Dr Rob Zavala 08/30/16 to assist with goals of care. Patient is an 80 year old woman with baseline aphasia/contractures. She was admitted 08/27/16 for care of sepsis due to UTI and Influenza A. Patient lives home with her who is her primary carpet yarn winder operator. currently admitted due to hip fx. Myron Ross (son/DPOA) [phone] Lexy/Jill Ross (daughters) [phone], Palliative Care to follow. Vinita Kendall
--- NOTE | 2016-08-30 13:44 | NUR ---
P: Excoriated, stephanie area on right anterior middle ear lobe due to immobility. I: Positioned rolled towel to support neck in midline position. E: Towel is maintaining head and neck position and no further progression of skin breakdown.
--- NOTE | 2016-08-30 14:21 | PCM.CONPAL ---
Date of Service Aug 30, 2016 Date of Hospital Admission: Aug 27, 2016 at 17:25 Date of Palliative Consult: Aug 30, 2016 Requesting Provider: Ladan Zavala DO Reason Palliative Care Consult: Goals of Care Discussion Hospital Unit @time of consult: Orthopedic/Surgical Care Palliative Care Recommendation Summary of palliative recommendations: -Symptom management (Pain/other) Discussed goals of care. is very realistic regarding his 's debilitated state. He feels she still recognizes him and that she does not do well with others feeding her. He wishes for a trial of short term feeding tube to see if can get her through this flu and get him back on feet to care and feed her again. He is definite about NO manager long term care feeding tube and also DNR/DNI status. He and his son relate their goal of getting them both on feet through SNF ( mostly rehab him through hip fx) and then move them into a home he owns in [place] with 24 hour caregiving assistance. For now they know she will need placement for management until he is better. -DPOA/Advanced Directives/POLST--redone to reflect DNR/DNI, limited-ie IV fluids and antibiotics, no manager long term care fding tube -Family/emotional support-Excellent with stepsvane Sanches and stepdaughter Lexy living in [place] and patients daughter-Christal living in [place]. would like to live with his until the end of her life. Additional Medical Diagnoses with primary management by Hospitalist team include : Problems: End of Life Preferences DNR/DNI, limited Disposition Plan is to go to [facility] in [place], to follow Resuscitation Status Resuscitation Status: DNR/DNI:Do Not Resuscitate/Intubate POLST Updates/Changes Previous POLST?: Yes Artificially Admin Nutrition: Trial Period Tube Feeding POLST Discussed with: Spouse/Other POLST Review Outcome: New Form Completed . Advanced Care Planning Address: POLST Pt History History of Present Illness 80 yo female patient with longstanding dementia dating back 12-15 yrs with a subsequent series of strokes leaving her bedbound and completely dependent on her for care. She has been under his care for 8-9 years and at this point is being fed by syringe. Family feels she is able to recognize them and does not like strangers to feed her. Patient and her started to develop fever and weakness. He fell and sustained a hip fracture-and medics noted that his would need transport due to need of care. Since hospitalized she has confirmed influenza, febrile, modest pyuria but only mixed growth on culture and BC-both bottles +GPC. Eval by speech for swallowing-failed in that she aspirated. Decision by her was to try for a short term feeding tube and see if recovery from influenza would improve swallowing Her is adamant- no manager long term care feeding tube will be considered. Same re DNR/DNI status--POLST form notes this with limited interventions. Feeding tube ? not addressed on form. Past Medical History Significant PMH Noted: Hx CVA Dementia, nonverbal but family convinced she recognizes them Has known decub ulcers never smoked no ETOH NKA Social History Social Support: daughter in [place] step son and step daughter in [place] and living in [place]. Living Situation: living with her (2nd) who is devoted caregiver Spiritual Support Spiritual Support Not applicable for pt. Her is jehovah's witness Palliative Performance Scale PPS Ambulation: Totally Bed PPS Activity: Unable to do any activity PPS Self-Care: Total Care Performance Scale: 10% Allergy Allergies Reviewed: Yes Medications Current Medications: Current Medications Ceftriaxone Sodium/Dextrose/ Premix 50 ml @ 100 mls/hr Q24 IV Last administered on 08/30/16 08:41; Admin Dose 100 MLS/HR; Start 08/28/16 at 16:00 Pharmacy Consult 1 ea 1 ea DAILY XX; Start 08/29/16 at 08:30 Vancomycin HCl/ Dextrose/Water 250 ml @ 166.667 mls/hr Q24H IV Last administered on 08/30/16 11:32; Admin Dose 166.667 MLS/HR; Start 08/29/16 at 11 :00 Pantoprazole 40 mg DAILYAC IVPUSH Last administered on 08/30/16 08:35; Admin Dose 40 MG; Start 08/29/16 at 07:30 Scheduled ([unknown laxative]) 1 DOSE PO DAILY Objective Findings Exam Vital Sign - Last Date Time Temp Pulse Resp B/P Pulse Ox O2 Delivery O2 Flow Rate FiO2 08/30/16 12:08 37.1 84 16 114/68 95 Room Air Intake and Output 08/29/16 08/29/16 08/30/16 Cumulative From/Thru 15:00 23:00 07:00 08/27/16 16:30 - 08/30/16 05:17 Intake Total 1619 ml 1454 ml 7172 ml Output Total 1500 ml 500 ml 3047 ml Balance 119 ml 954 ml 4125 ml Intake Oral 0 ml 0 ml IV Total 1043 ml 780 ml 5553 ml Tube Feeding 471 ml 569 ml 1249 ml Tube Irrigant 105 ml 105 ml 370 ml Output Urine Total 1500 ml 500 ml 3025 ml Stool Total 0 ml 0 ml Gastric Drainage Total 22 ml # Bowel Movements 1 3 General: Minimally responsive Heart: Regular Rate/Rhythm Lungs: Diminished Neuro: Other (in bed, unarousable at this time, contractures of all extremities , thin to cachectic) Skin: Wounds/Lacerations, Pressure Area (decub ulcers per nsg-- not viewed) Lab/Diagnostics Lab and Imaging results reviewed in detail in EMR. albumin 2.8, CBC normal but borderline leukopenia Patient/Family Conference Members Present Family Members Present Myron-step son, Medical Team Members Present? Mike CARTY Discussion/Goals of Care Discussion FAMILY UNDERSTANDING OF DISEASE: DISEASE PROGRESSION/EVIDENCE OF DECLINE: SYMPTOM BURDEN: GOALS: HOPES/WORRIES: FAMILY WISHES/VALUES: Do you want to be told truth about his illness, even if unpleasant? Does family want to know prognosis when it can be predicted, to better guide treatment decisions? What is quality of life for the patient: to be able to interact with their loved ones and friends, to travel, not to be bedbound, to be independent in taking care of themselves: Would patient choose quality of life over quantity of life? Would comfort care be more important than being awake and alert? If patient is no longer alert and aware because of their illness, would you choose comfort for them? Palliative Care counselled: Time spent Total time [50 ] minutes; >50% face to face with patient and/or family, providing counselling regarding plans and recommendations, and in care coordination with his/her medical teams. I also spent an additional [ 20] minutes counseling for advanced care planning with the patient/the patients family/the surrogate decision maker. copies to: Caesar Denis MD, Deborah A MD Aug 30, 2016 14:21
--- NOTE | 2016-08-30 17:58 | NUR ---
Skin/Respirations Pt at high risk for developing PUs. Q2 turns w/ pillows, heels floated. Mepilex applied in already broken down areas and highest risk areas. Pt rec'v breathing treatment, noticed that during tx, accessory muscle use for breathing, after treatment, pt w/ increased cough, difficult to clear. HOB raised even further to help ease difficulty Bed is down and in locked position, Frequent rounding for patient safety as patient is unable to use call light. Addendum: 08/30/16 at 1804 by NICO REMY RN Hospitalist aware of respirations
--- NOTE | 2016-08-30 19:46 | PCM.PNMED ---
Subjective Date of Service Aug 30, 2016 Subjective Patient was seen and examined today at bedside. There was concerns from nursing that the patient was using accessory muscles for breathing. However upon physical exam the patient was resting comfortably and showed no signs of labored breathing. Patient is chronically contracted and still with only minimal response. Exam Vital Signs Vital Sign - Last Date Time Temp Pulse Resp B/P Pulse Ox O2 Delivery O2 Flow Rate FiO2 08/30/16 16:21 90 22 92 Room Air 08/30/16 12:08 37.1 114/68 Intake and Output 08/29/16 08/29/16 08/30/16 Cumulative From/Thru 15:00 23:00 07:00 08/27/16 16:30 - 08/30/16 05:17 Intake Total 1619 ml 1454 ml 7172 ml Output Total 1500 ml 500 ml 3047 ml Balance 119 ml 954 ml 4125 ml Intake Oral 0 ml 0 ml IV Total 1043 ml 780 ml 5553 ml Tube Feeding 471 ml 569 ml 1249 ml Tube Irrigant 105 ml 105 ml 370 ml Output Urine Total 1500 ml 500 ml 3025 ml Stool Total 0 ml 0 ml Gastric Drainage Total 22 ml # Bowel Movements 1 3 Exam Physical Exam: GEN: Patient was in no acute distress HEENT: PERRLA, EOMI, Neck soft supple, trachea midline, nomocephalic/atraumatic , NG tube in place CV: +S1/S2, RRR, no murmurs auscultated Respiratory: Coarse breath sounds, difficult to auscultate as patient constantly grunts GI: +bowel sounds x4, soft, compressible, non TTP EXT: Bilateral contractures of the upper and lower extremities, +2 pitting edema in the left foot, +1 pitting edema in the right foot Psych: mood and affect were somnolent IVs and Medications Medications Reviewed: Medications were reviewed in detail Medications Current Medications Pharmacy Consult 1 ea 1 ea DAILY XX; Start 08/29/16 at 08:30 Vancomycin HCl/ Dextrose/Water 250 ml @ 166.667 mls/hr Q24H IV Last administered on 08/30/16 11:32; Admin Dose 166.667 MLS/HR; Start 08/29/16 at 11 :00 Pantoprazole 40 mg DAILYAC IVPUSH Last administered on 08/30/16 08:35; Admin Dose 40 MG; Start 08/29/16 at 07:30 Lab and Diagnostics Result Diagram: 08/30/16 0832 08/30/16 0832 Microbiology Microbiology [facility] INFLUENZA RAPID AG SCREEN Final 08/27/16-1623 RESULT POSITIVE FOR FLU A NEGATIVE FOR FLU B This rapid assay is a screen test only for Influenza A&B and does not definitively rule out the presence of FLU A & B or other respiratory viral pathogens. The assay's sensitivity varies on the specimen type submitted. Nasal washes are optimum. Recommend respiratory viral cultures and DFA to confirm negative screens and rule out other viral pathogens. Per CDC, the sensitivity of this method is approximately 50% for H1N1. A negative result does NOT rule out Novel H1N1 (Swine Flu) TIME CALLED: 1623 FLOOR/DOCTOR: DEEPAK aSnz Name: EMMA LOPEZ Age/Sex: 80/F Attend Dr: Hoang Bonilla MD Acct: [id number] Unit: [id number] Status: ADM IN Location: [facility] [place] 1005-1 Re08/27/16 Disch: Specimen: [id number] Collected: 08/27/16 Status: COMP Req#: [id number] Received: 08/27/16160 Source: URINE CC Sp Desc : DELMY Justice Dr: Jack Dejesus MD Ordered: URINE CULT Procedure Result Verified Site Microbiology GUSTAVO CULT URINE Final 08/28/16 Organism 1 MIXED UROGENITAL DEREK U COLONY COUNT/QUANTITY 50,000-100,000 CFU/ml Name: EMMA LOPEZ Age/Sex: 80/F Attend Dr: Hoang Bonilla MD Acct: [id number] Unit: [id number] Status: ADM IN Location: [facility] [place] 1005-1 Re08/27/16 Disch: Specimen: [id number] Collected: 08/27/16 Status: RES Req#: [id number] Received: 08/27/16 Source: BLOOD Sp Desc : AA Reshma Dr: Jack Dejesus MD Ordered: BC Comments: Collected by Nurse/Unit? Y/N N Procedure Result Verified Site Microbiology GUSTAVO CULTURE BLOOD Preliminary 08/28/16-1800 Organism 1 POSITIVE BLOOD CULTURE GRAM STAIN RESULT GRAM POSITIVE COCCI ?STAPH BC BOTTLE Isolated from Aerobic Bottle of Set Drawn DATE CALLED: 08/28/16 TIME CALLED: 947 CALLED BY: MACIEJ FLOOR/DOCTOR: FRANCIS Barbosa BC READ BACK Y TYPE OF DRAW PERIPHERAL DRAW TIME OF POSITIVITY 0915 GRAM STAIN RESULT GRAM POSITIVE COCCI ?STAPH BC BOTTLE2 Isolated from Anaerobic Bottle of Set Drawn DATE CALLED: 08/28/16 TIME CALLED: 1758 CALLED BY: MILENA FLOOR/DOCTOR: FRANCIS/SARBJIT Frances READ BACK YES TYPE OF DRAW PERIPHERAL DRAW TIME OF POSITIVITY 1744 X-Rays, CTs and MRIs PROCEDURE: X-RAY CHEST ONE VIEW, PORTABLE ([id number]) INDICATIONS: CONFIRM DOBHOF TUBE PLACEMENT TECHNIQUE: One view of the chest was acquired. COMPARISON: [facility], CR, XR CHEST 1VW (PORTABLE), 08/27/2016, 13: 53. FINDINGS: Surgical changes and devices: Interval placement of feeding tube is present with distal tip below the left hemidiaphragm. Lungs and pleura: No pleural effusions or pneumothorax. Lungs are clear, noting incomplete evaluation of left base secondary to patient's overlying hand.. Mediastinum: Mediastinal contours appear normal. Heart size is normal. Bones and chest wall: No suspicious bony lesions. Overlying soft tissues appear unremarkable. IMPRESSION: Feeding tube placement as above. Dictated by: Astrid Avalos M.D. on 08/28/2016 at 16:47 Assessment & Plan 80-year-old female, with baseline aphasia/contractures, admitted for sepsis due to UTI and Influenza A. Influenza A positive, contractured arm obscures chest x-ray findings -- Continue Tamiflu via feeding tube. -- Continue Duo neb treatments Bacteremia with gram-positive cocci -- Could be due to pneumonia superinfection after influenza A. -- Could be due to urinary tract infection with bacteremia -- Continue Rocephin -- Continue vancomycin for further coverage as per pharmacy -- Blood cultures show gram-positive staphylococci sensitivities pending UTI probably secondary to indwelling catheter -- Currently on Rocephin -- Chronic indwelling catheter changed -- Urine cultures showed mixed urogenital derek Hyponatremia-resolved -- Sodium 13 today yesterday 1335 -- Continue tube feeding -- Hyponatremia may be secondary to malnutrition, however now that the patient has started tube feedings seems to have corrected the problem Functional quadriplegia present on admission --Debilitating CVA, bedbound, aphasic, contractured limbs -- PT consulted and would appreciate any recommendations Aspiration risk -- Continue D5 1/2NS with 20K at 75 mL an hour -- NG tube in place continue recommendations from nutritional services. DVT prophylaxis lovenox . GI prophylaxis with Protonix. Code DNR. POLST Form in chart Disposition patient's primary amusement park worker is also in the hospital. Family is seeking long-term placement at this time. Case management is currently seeking placement. Palate care has been consulted on this case as well and discussing further care goals for the patient with family. GI Prophylaxis: Proton Pump Inhibitor VTE Prophylaxis: Sub-Q Enoxaparin VTE Mechanical Devices: Anti-Embolic stockings Resuscitation Status: DNR/DNI:Do Not Resuscitate/Intubate Ladan Zavala DO Aug 30, 2016 19:46
--- NOTE | 2016-08-30 20:30 | NUR ---
spiritual care: follow up caring visit per plan (see above) also by eucharistic science intern
[2016-08-31] VITALS (8 sets, daily range): BP systolic 104–132; BP diastolic 58–71; PULSE 61–95; RESP 19–22; O2SAT 93–97
--- NOTE | 2016-08-31 00:19 | NUR ---
tx at 2100 for duoneb held, patient sleeping and in no respiratory distress
[2016-08-31] MEDS: D5 0.45% NaCl + KCl 20 mEq/L 1,000 ML IV SCH ×2 (01:01→17:02)
--- NOTE | 2016-08-31 04:05 | NUR ---
Activity Able to arouse patient during assessment without painful stimuli again this shift. Patient would open eyes, but not meet gaze, and is non verbal. IV is currently infusing D5 1/2 NS w/ 20 K @75cc/hr. Tube feeding has reached goal of 60cc/hr, and has a flush of 40cc Q4 hours. Checking for tube feeding residuals Q4 is being completed. Last residual check had 0cc residual. Patient appears to be tolerating tube feeding well. Q2 turns preformed, heels are floated, and rolled up towels are placed within the patients hands. Chronic maloney is draining yellow urine to gravity, and brief is being worn. Bilateral feet are edematous, more so in the left foot. Pitting edema is noted, and skin is taught. Will continue care, and continue Q1 hour checks. Addendum: 08/31/16 at 0410 by AUDRA JHAVERI RN Small Mepilex's were applied to patients shoulders blades due to redness, and patient was supported with pillows to reduce pressure on shoulders and buttock.
[2016-08-31] MEDS: Albuterol-Ipratropium 3 mL Inhalation Solution NEB SCH ×4 (07:45→19:50)
[2016-08-31] MEDS: Vancomycin Dose per Pharmacist XX SCH (08:30)
[2016-08-31] MEDS: cefTRIAXone Inj 1,000 MG in IV Premix 1 EACH IV SCH (09:16)
[2016-08-31] MEDS: Pantoprazole 4 mg/mL 10 mL Inj IVPUSH SCH (09:16)
[2016-08-31] MEDS ORDERED: Vancomycin Serum Trough XX ONE (10:30)
--- NOTE | 2016-08-31 11:06 | NUR ---
Spoke with Amaris at [facility] and they can accept but can not accept patient until Saturday because patient was Flu A positive on admit. I am also going to attempt [facility] to see if we can get skilled stay. Updated SOFTWARE APPLICATIONS SPECIALIST Addendum: 08/31/16 at 1451 by JACKELYN GOMEZ CM Spoke with Camelia SALMERON at [facility] and asked her for review of this patient, we would need a denial in order to have patient pay privately for jail. Camelia will review this and let me know outcome. Spoke with Bina at [facility] again and she is not able to accept patient until Saturday. Updated SOFTWARE APPLICATIONS SPECIALIST
--- NOTE | 2016-08-31 12:03 | PCM.PNMED ---
Subjective Date of Service Aug 31, 2016 Subjective Patient was examined at bedside today. Patient is still minimally responsive however she was more awake this morning and was not showing any signs of accessory muscle usage for breathing. Exam Vital Signs Vital Sign - Last Date Time Temp Pulse Resp B/P Pulse Ox O2 Delivery O2 Flow Rate FiO2 08/31/16 11:50 72 22 95 Room Air 08/31/16 08:24 37.1 132/71 Intake and Output 08/30/16 08/30/16 08/31/16 Cumulative From/Thru 15:00 23:00 07:00 08/27/16 16:30 - 08/31/16 06:53 Intake Total 1943 ml 1787 ml 14933 ml Output Total 752 ml 450 ml 4249 ml Balance 1191 ml 1337 ml 6653 ml Intake Oral 0 ml 0 ml 0 ml IV Total 1069 ml 883 ml 7505 ml Tube Feeding 729 ml 824 ml 2802 ml Tube Irrigant 145 ml 80 ml 595 ml Output Urine Total 750 ml 450 ml 4225 ml Stool Total 2 ml 2 ml Gastric Drainage Total 22 ml # Bowel Movements 1 4 Exam Physical Exam: GEN: Patient was in no acute distress HEENT: PERRLA, EOMI, Neck soft supple, trachea midline, nomocephalic/atraumatic , NG tube in place CV: +S1/S2, RRR, no murmurs auscultated Respiratory: Difficult to auscultate as patient constantly grunts, but lungs were clear with inspiration difficult to auscultate on expiration due to the patient's grunting. GI: +bowel sounds x4, soft, compressible, non TTP EXT: Bilateral contractures of the upper and lower extremities, +2 pitting edema in the left foot, +1 pitting edema in the right foot Psych: mood and affect were somnolent IVs and Medications Medications Reviewed: Medications were reviewed in detail Lab and Diagnostics Result Diagram: 08/30/16 0832 08/31/16 0455 Microbiology Microbiology [facility] INFLUENZA RAPID AG SCREEN Final 08/27/16-1623 RESULT POSITIVE FOR FLU A NEGATIVE FOR FLU B This rapid assay is a screen test only for Influenza A&B and does not definitively rule out the presence of FLU A & B or other respiratory viral pathogens. The assay's sensitivity varies on the specimen type submitted. Nasal washes are optimum. Recommend respiratory viral cultures and DFA to confirm negative screens and rule out other viral pathogens. Per CDC, the sensitivity of this method is approximately 50% for H1N1. A negative result does NOT rule out Novel H1N1 (Swine Flu) TIME CALLED: 1623 FLOOR/DOCTOR: SAVANNAH/NAREN Sanz Name: EMMA LOPEZ Age/Sex: 80/F Attend Dr: Hoang Bonilla MD Acct: [id number] Unit: [id number] Status: ADM IN Location: [facility] [place] 1005-1 Re08/27/16 Disch: Specimen: [id number] Collected: 08/27/16 Status: COMP Req#: [id number] Received: 08/27/16160 Source: URINE CC Sp Desc : PP Reshma Dr: Jack Dejesus MD Ordered: URINE CULT Procedure Result Verified Site Microbiology GUSTAVO CULT URINE Final 08/28/16-908 Organism 1 MIXED UROGENITAL DEREK U COLONY COUNT/QUANTITY 50,000-100,000 CFU/ml Name: EMMA LOPEZ Age/Sex: 80/F Attend Dr: Hoang Bonilla MD Acct: [id number] Unit: [id number] Status: ADM IN Location: [facility] [place] 1005-1 Re08/27/16 Disch: Specimen: [id number] Collected: 08/27/16-1519 Status: RES Req#: [id number] Received: 08/27/16 Source: BLOOD Sp Desc : AA Reshma Dr: Jack Dejesus MD Ordered: Comments: Collected by Nurse/Unit? Y/N N Procedure Result Verified Site Microbiology GUSTAVO CULTURE BLOOD Preliminary 08/28/16-180 Organism 1 POSITIVE BLOOD CULTURE GRAM STAIN RESULT GRAM POSITIVE COCCI ?STAPH BC BOTTLE Isolated from Aerobic Bottle of Set Drawn DATE CALLED: 08/28/16 TIME CALLED: 0948 CALLED BY: MACIEJ FLOOR/DOCTOR: FRANCIS FLORES READ BACK Y TYPE OF DRAW PERIPHERAL DRAW TIME OF POSITIVITY 0915 GRAM STAIN RESULT GRAM POSITIVE COCCI ?STAPH BC BOTTLE2 Isolated from Anaerobic Bottle of Set Drawn DATE CALLED: 08/28/16 TIME CALLED: 175 CALLED BY: MILENA FLOOR/DOCTOR: FRANCIS/SARBJIT FLORES READ BACK YES TYPE OF DRAW PERIPHERAL DRAW TIME OF POSITIVITY 1744 X-Rays, CTs and MRIs PROCEDURE: X-RAY CHEST ONE VIEW, PORTABLE ([id number]) INDICATIONS: CONFIRM DOBHOF TUBE PLACEMENT TECHNIQUE: One view of the chest was acquired. COMPARISON: [facility], CR, XR CHEST 1VW (PORTABLE), 08/27/2016, 13: 53. FINDINGS: Surgical changes and devices: Interval placement of feeding tube is present with distal tip below the left hemidiaphragm. Lungs and pleura: No pleural effusions or pneumothorax. Lungs are clear, noting incomplete evaluation of left base secondary to patient's overlying hand.. Mediastinum: Mediastinal contours appear normal. Heart size is normal. Bones and chest wall: No suspicious bony lesions. Overlying soft tissues appear unremarkable. IMPRESSION: Feeding tube placement as above. Dictated by: Astrid Avalos M.D. on 08/28/2016 at 16:47 Assessment & Plan 80-year-old female, with baseline aphasia/contractures, admitted for sepsis due to UTI and Influenza A. Influenza A positive, contractured arm obscures chest x-ray findings -- Continue Tamiflu via feeding tube. -- Continue Duo neb treatments Bacteremia with gram-positive cocci -- Could be due to pneumonia superinfection after influenza A. -- Could be due to urinary tract infection with bacteremia -- Continue Rocephin -- Continue vancomycin for further coverage as per pharmacy -- Blood cultures show gram-positive staphylococci sensitivities pending UTI probably secondary to indwelling catheter -- Currently on Rocephin -- Chronic indwelling catheter changed -- Urine cultures showed mixed urogenital derek Hyponatremia-resolved -- Sodium 138 today yesterday 135 -- Continue tube feeding -- Hyponatremia was most likely secondary to malnutrition, however now that the patient has started tube feedings seems to have corrected the problem Functional quadriplegia present on admission --Debilitating CVA, bedbound, aphasic, contractured limbs -- PT consulted and would appreciate any recommendations Aspiration risk -- Continue D5 1/2NS with 20K at 75 mL an hour -- NG tube in place continue recommendations from nutritional services. DVT prophylaxis lovenox . GI prophylaxis with Protonix. Code DNR. POLST Form in chart Disposition patient will be most likely discharged on Saturday to a SNF. The half-way facility is concerned that the patient was recently diagnosed with influenza. Patient is progressing well and seems that she is getting over her bout of influenza and should be ready for discharge on Saturday. Her and family are aware of the situation and are in support of this. GI Prophylaxis: Proton Pump Inhibitor VTE Prophylaxis: Sub-Q Enoxaparin VTE Mechanical Devices: Anti-Embolic stockings Resuscitation Status: DNR/DNI:Do Not Resuscitate/Intubate Ladan Zavala DO Aug 31, 2016 12:03
--- NOTE | 2016-08-31 13:28 | PCM.PALLBR ---
Palliative Care Recommendation Summary of palliative recommendations: 08/31/16-see update. no change except delay in discharge because of +influenza. Goals unchanged Palliaitive Care will sign off at this time. Please contact us if needed further in the hospitalization -Symptom management (Pain/other) Discussed goals of care. is very realistic regarding his 's debilitated state. He feels she still recognizes him and that she does not do well with others feeding her. He wishes for a trial of short term feeding tube to see if can get her through this flu and get him back on feet to care and feed her again. He is definite about NO longterm feeding tube and also DNR/DNI status. He and his son relate their goal of getting them both on feet through SNF ( mostly rehab him through hip fx) and then move them into a home he owns in [place] with 24 hour caregiving assistance. For now they know she will need placement for management until he is better. -DPOA/Advanced Directives/POLST--redone to reflect DNR/DNI, limited-ie IV fluids and antibiotics, no longterm fding tube -Family/emotional support-Excellent with stepsvane Sanches and stepdaughter Lexy living in [place] and patients daughter-Christal living in [place]. would like to live with his until the end of her life. Additional Medical Diagnoses with primary management by Hospitalist team include : Problems: End of Life Preferences DNR/DNI, limited Goals of Care short term feeding tube to get through flu Disposition Plan is to go to [facility] in [place], to follow Resuscitation Status Resuscitation Status: DNR/DNI:Do Not Resuscitate/Intubate POLST Updates/Changes Previous POLST?: Yes Artificially Admin Nutrition: Trial Period Tube Feeding POLST Discussed with: Spouse/Other POLST Review Outcome: New Form Completed . Advanced Care Planning Address: POLST Total time 25 minutes; >50% face to face with patient and/or family, providing counselling regarding plans and recommendations, and in care coordination with his/her medical teams. I also spent an additional [ ] minutes counseling for advanced care planning with the patient/the patients family/the surrogate decision maker. Palliative Brief Note Date of Service Aug 31, 2016 . Patient seen-does not respond. Spoke with her step daughter who states she just saw her and that she yells a bit-and did when she sees someone she knows. is now in surg for hip fx. Now change in plans with hope for SNF placement at this time postponed due to the +influenza status of both pt and her . Step daughter is concerned that pt may not survive this when not under watch of her . Feeding time with syringe is about 1 hour and even other family members don't "feed her correctly" Reviewed temporary NG tube for feeding meds etc. Her states no longterm feeding tube and he had verbalized that she may pass with this illness. Goal is still to be in same SNF while he recovers postop. All seem comfortable to set this goal and eventually get them both home with 24 hour caregiving support. Lorena Rendon MD Aug 31, 2016 13:27
[2016-08-31] MEDS: Oseltamivir 6 mg/mL 60 mL Suspension PO SCH ×2 (13:30→21:45)
--- NOTE | 2016-08-31 15:18 | NUR ---
Scale Expert: Continued Discharge Planning Data & Assessment: Scale Expert met with patient's son, Myron Ross [phone], at bedside to discuss discharge planning. Patient's son is aware that [facility] is not able to accept the patient until 09/03/15. Patient's son is also aware that if patient's [facility] does not approve for the patient to admit to [facility] that it would be an out of pocket expense for the patient. Patient son states that he is aware and the patient will pay privately for [facility] if [facility] denies. SW will continue to follow. Plan: Patient is likely to discharge to [facility] either with [facility]'s approval or private pay SNF. SW will continue to follow Mary Louise LMSW, LIAT
--- NOTE | 2016-08-31 15:23 | NUR ---
NUTRITION FOLLOW-UP: ASSESS: Pt is an 80yo F admitted for sepsis due to UTI and influenza A. Pt is non-verbal at baseline and has chronic dysphagia. Per H&P, pt is fed by her via a syringe w/pureed foods. has evaluated pt and made her strict NPO. TF was started 08/28, pt continues to tolerate well at goal rate. Per pts , he does not desire long-term nutrition support for pt but wants it temporarily to help pt recover from current infection and flu. PMHX: CVA, Dementia LABS: Reviewed. Cr 0.39, Glu 130, Ca 7.9, Albumin 2.7 MEDS: Reviewed. Protonix GI: BMx1 08/31 SKIN: Tello 9. Stg 2 PU on RLE and sacral area CURRENT WTS: 65.4kg, BMI 22.6kg/m2, admit wt 50.8kg (wt difference due to different bed scales) NUTRITION SUPPORT: Jevity 1.5 @ 60ml/hr to provide 2070kcal and 88g pro (100% estimated needs). Flush 40ml q 4 hrs while on IVF. If IVF stopped, recommend increase fluid flush to 85ml q 3hrs. DIET: strict NPO per EST. NEEDS: stg 2 PU Kcals: 1960-2290kcal/day (30-35kcal/kg) Pro: 75-100g/day (1.2-1.5g/kg) Fluids: 1950ml/day (1ml/kcal/kg) NUTRITION DIAGNOSIS: 1.) Inadequate oral intake related to decreased ability to consume sufficient energy as evidenced by current NPO status and need for TF to provide adequate nutrition--IMPROVING 2.) Chew/swallow difficulty related to chronic aphasia and dysphagia as evidence by strict NPO diet order per --PERSISTS NUTRITION INTERVENTION: 1.) Recommend continuing Jevity 1.5 @ 60 ml/hr 2.) Diet advance per 3.) Will continue to monitor desire for nutrition support, will d/c if no longer desired by pt's . MONITOR / EVAL: ST, TF, labs, wt, POC, nutrition status. Will continue to monitor per high nutrition risk guidelines.
--- NOTE | 2016-08-31 16:51 | NUR ---
Activity Pt remains non verbal but has no s/s of distress. FELDT scores were 0/10. Q2 turns for comfort and repositioning. Family at bedside. HOB remains at 30 degrees. Care continues.
--- NOTE | 2016-08-31 18:18 | NUR ---
Dressing Pt soiled brief and bedding. Cleaned pt up and changed Mepilex dressing on sacrum. Q2 turns. Floating Heels on pillows. HOB at 30 degrees. Care continues.
[2016-09-01 05:44] VITALS: BP 125/73; PULSE 75; RESP 18; O2SAT 98
--- NOTE | 2016-09-01 05:50 | NUR ---
Car Lock Pt on TF, flush increased to 115 ml Q3 per order as IVF are complete. Pt is on droplet precautions for Flu A. Nonverbal, with contractures, ulcers on sacrum, calves, shoulder, and knee- maintain TQ2 and dressings intact. TF running jevity 1.5 at 60ml/h goal rate. No signs of pain/distress this shift. Oral care provided. Palliative consult noted, awaiting new orders. Continue to monitor
[2016-09-01 07:30] VITALS: PULSE 66; RESP 24; O2SAT 94
[2016-09-01] MEDS: Albuterol-Ipratropium 3 mL Inhalation Solution NEB SCH ×4 (07:30→21:30)
[2016-09-01] MEDS: D5 0.45% NaCl + KCl 20 mEq/L 1,000 ML IV SCH ×2 (08:00→21:20)
[2016-09-01] MEDS: Vancomycin Dose per Pharmacist XX SCH (08:30)
[2016-09-01] MEDS: Pantoprazole 4 mg/mL 10 mL Inj IVPUSH SCH (10:18)
[2016-09-01] MEDS: cefTRIAXone Inj 1,000 MG in IV Premix 1 EACH IV SCH (10:18)
[2016-09-01] MEDS: Vancomycin Serum Trough XX ONE ×2 (10:27→10:30)
[2016-09-01] MEDS: Oseltamivir 6 mg/mL 60 mL Suspension PO SCH (11:44)
--- NOTE | 2016-09-01 14:37 | PCM.PNMED ---
Subjective Date of Service Sep 01, 2016 Subjective Patient was seen and examined. Patient was sleeping and in NAD. Exam Vital Signs Vital Sign - Last Date Time Temp Pulse Resp B/P Pulse Ox O2 Delivery O2 Flow Rate FiO2 09/01/16 07:30 66 24 94 Room Air 09/01/16 05:44 36.8 125/73 Intake and Output 08/31/16 08/31/16 09/01/16 Cumulative From/Thru 15:00 23:00 07:00 08/27/16 16:30 - 09/01/16 06:07 Intake Total 958 ml 1740 ml 61152 ml Output Total 750 ml 800 ml 5799 ml Balance 208 ml 940 ml 7801 ml Intake Oral 0 ml 0 ml 0 ml IV Total 958 ml 900 ml 9363 ml Tube Feeding 720 ml 3522 ml Tube Irrigant 120 ml 715 ml Output Urine Total 750 ml 800 ml 5775 ml Stool Total 2 ml Gastric Drainage Total 22 ml # Bowel Movements 1 0 5 Exam Physical Exam: GEN: Patient was sleeping and in NAD HEENT: PERRLA, EOMI, Neck soft supple, trachea midline, nomocephalic/atraumatic CV: +S1/S2, RRR, systolic murmur auscultated Respiratory: CTAB, no wheezes, rales, rhonchi GI: +bowel sounds x4, soft, compressible, non TTP EXT: no c/c/e Neuro: CN II-XII grossly intact Psych: mood and affect were appropriate IVs and Medications Medications Reviewed: Medications were reviewed in detail Lab and Diagnostics Result Diagram: 08/30/16 0832 08/31/16 0455 Microbiology Microbiology GUSTAVO INFLUENZA RAPID AG SCREEN Final 08/27/16-1622 RESULT POSITIVE FOR FLU A NEGATIVE FOR FLU B This rapid assay is a screen test only for Influenza A&B and does not definitively rule out the presence of FLU A & B or other respiratory viral pathogens. The assay's sensitivity varies on the specimen type submitted. Nasal washes are optimum. Recommend respiratory viral cultures and DFA to confirm negative screens and rule out other viral pathogens. Per CDC, the sensitivity of this method is approximately 50% for H1N1. A negative result does NOT rule out Novel H1N1 (Swine Flu) TIME CALLED: 1623 FLOOR/DOCTOR: SAVANNAH/NAREN Sanz Name: EMMA LOPEZ Age/Sex: 80/F Attend Dr: Hoang Bonilla MD Acct: [id number] Unit: [id number] Status: ADM IN Location: [facility] 1005-1 Re08/27/16 Disch: Specimen: [id number] Collected: 08/27/16-154 Status: COMP Req#: [id number] Received: 08/27/16-160 Source: URINE CC Sp Desc : PP Subm Dr: Jack Dejesus MD Ordered: URINE CULT Procedure Result Verified Site Microbiology GUSTAVO CULT URINE Final 08/28/16-908 Organism 1 MIXED UROGENITAL DEREK U COLONY COUNT/QUANTITY 50,000-100,000 CFU/ml Name: EMMA LOPEZ Age/Sex: 80/F Attend Dr: Hoang Bonilla MD Acct: [id number] Unit: [id number] Status: ADM IN Location: [facility] 1005-1 Re08/27/16 Disch: Specimen: [id number] Collected: 08/27/16-1519 Status: RES Req#: [id number] Received: 08/27/16 Source: BLOOD Sp Desc : AA Subm Dr: Jack Dejesus MD Ordered: Comments: Collected by Nurse/Unit? Y/N N Procedure Result Verified Site Microbiology GUSTAVO CULTURE BLOOD Preliminary 08/28/16-1800 Organism 1 POSITIVE BLOOD CULTURE GRAM STAIN RESULT GRAM POSITIVE COCCI ?STAPH BC BOTTLE Isolated from Aerobic Bottle of Set Drawn DATE CALLED: 08/28/16 TIME CALLED: 0948 CALLED BY: MACIEJ FLOOR/DOCTOR: FRANCIS Barbosa BC READ BACK Y TYPE OF DRAW PERIPHERAL DRAW TIME OF POSITIVITY 0915 GRAM STAIN RESULT GRAM POSITIVE COCCI ?STAPH BC BOTTLE2 Isolated from Anaerobic Bottle of Set Drawn DATE CALLED: 08/28/16 TIME CALLED: 1759 CALLED BY: MILENA FLOOR/DOCTOR: FRANCIS/SARBJIT Barbosa. BC READ BACK YES TYPE OF DRAW PERIPHERAL DRAW TIME OF POSITIVITY 1744 X-Rays, CTs and MRIs PROCEDURE: X-RAY CHEST ONE VIEW, PORTABLE ([id number]) INDICATIONS: CONFIRM DOBHOF TUBE PLACEMENT TECHNIQUE: One view of the chest was acquired. COMPARISON: [facility], CR, XR CHEST 1VW (PORTABLE), 08/27/2016, 13: 53. FINDINGS: Surgical changes and devices: Interval placement of feeding tube is present with distal tip below the left hemidiaphragm. Lungs and pleura: No pleural effusions or pneumothorax. Lungs are clear, noting incomplete evaluation of left base secondary to patient's overlying hand.. Mediastinum: Mediastinal contours appear normal. Heart size is normal. Bones and chest wall: No suspicious bony lesions. Overlying soft tissues appear unremarkable. IMPRESSION: Feeding tube placement as above. Dictated by: Astrid Avalos M.D. on 08/28/2016 at 16:47 Assessment & Plan 80-year-old female, with baseline aphasia/contractures, admitted for sepsis due to UTI and Influenza A. Influenza A positive, contractured arm obscures chest x-ray findings -- Continue Tamiflu via feeding tube. -- Continue Duo neb treatments Bacteremia with gram-positive cocci -- Could be due to pneumonia superinfection after influenza A. -- Could be due to urinary tract infection with bacteremia -- Continue Rocephin -- Discontinue vancomycin -- Continue vancomycin for further coverage as per pharmacy -- Blood cultures show gram-positive staphylococci sensitivity to Rocephin UTI probably secondary to indwelling catheter -- Currently on Rocephin -- Chronic indwelling catheter changed -- Urine cultures showed mixed urogenital derek Hyponatremia-resolved -- Sodium 138 today yesterday 135 -- Continue tube feeding -- Hyponatremia was most likely secondary to malnutrition, however now that the patient has started tube feedings seems to have corrected the problem Functional quadriplegia present on admission --Debilitating CVA, bedbound, aphasic, contractured limbs -- PT consulted and would appreciate any recommendations Aspiration risk -- Continue D5 1/2NS with 20K at 75 mL an hour -- NG tube in place continue recommendations from nutritional services. DVT prophylaxis lovenox . GI prophylaxis with Protonix. Code DNR. POLST Form in chart Disposition patient is scheduled to be discharged on Saturday to a SNF. GI Prophylaxis: Proton Pump Inhibitor VTE Prophylaxis: Sub-Q Enoxaparin VTE Mechanical Devices: Anti-Embolic stockings Resuscitation Status: DNR/DNI:Do Not Resuscitate/Intubate Ladan Zavala DO Sep 01, 2016 14:37
[2016-09-01 15:40] VITALS: BP 143/72; PULSE 94; O2SAT 98
[2016-09-01 16:29] VITALS: PULSE 79; RESP 24; O2SAT 96
--- NOTE | 2016-09-01 19:31 | NUR ---
activity Pt turned q 2hours, pt tolerating tube feeding without difficulty, only 5mls residual when checked. Pt acting uncomfortable daughter stated she was hurting, administered PO Tylenol through feeding tube, pt appeared more comfortable. Pt had 2 large soft BMs this shift.
[2016-09-01 20:00] VITALS: BP 151/74; PULSE 87; RESP 18; O2SAT 96
[2016-09-01 21:31] VITALS: PULSE 96; RESP 22; O2SAT 92
[2016-09-02] VITALS (7 sets, daily range): BP systolic 149–173; BP diastolic 68–96; PULSE 72–97; RESP 16–20; O2SAT 92–97
--- NOTE | 2016-09-02 04:08 | NUR ---
Pain Pt. was moaning in pain. Tylenol PO was admin through feeding tube. Pt. feel asleep afterwards. Will continue to monitor.
[2016-09-02] MEDS: Albuterol-Ipratropium 3 mL Inhalation Solution NEB SCH ×4 (08:09→19:28)
[2016-09-02] MEDS: Pantoprazole 4 mg/mL 10 mL Inj IVPUSH SCH (08:46)
[2016-09-02] MEDS: D5 0.45% NaCl + KCl 20 mEq/L 1,000 ML IV SCH (08:47)
[2016-09-02] MEDS: cefTRIAXone Inj 1,000 MG in IV Premix 1 EACH IV SCH (08:47)
--- NOTE | 2016-09-02 14:56 | PCM.PNMED ---
Subjective Date of Service Sep 02, 2016 Subjective Patient was seen and examined today. No new concerns as reported by nursing Exam Vital Signs Vital Sign - Last Date Time Temp Pulse Resp B/P Pulse Ox O2 Delivery O2 Flow Rate FiO2 09/02/16 11:54 72 20 95 Room Air 09/02/16 09:55 36.4 173/96 Intake and Output 09/01/16 09/01/16 09/02/16 Cumulative From/Thru 15:00 23:00 07:00 08/27/16 16:30 - 09/02/16 05:09 Intake Total 1210 ml 0 ml 73503 ml Output Total 1500 ml 1250 ml 8549 ml Balance -290 ml -1250 ml 6261 ml Intake Oral 0 ml 0 ml 0 ml IV Total 9363 ml Tube Feeding 725 ml 4247 ml Tube Irrigant 485 ml 1200 ml Output Urine Total 1500 ml 1250 ml 8525 ml Stool Total 2 ml Gastric Drainage Total 22 ml # Bowel Movements 2 1 8 Exam Physical Exam: GEN: Patient was in no acute distress HEENT: PERRLA, EOMI, Neck soft supple, trachea midline, nomocephalic/atraumatic , NG tube in place CV: +S1/S2, RRR, systolic murmur auscultated Respiratory: Clear to auscultation bilaterally, no wheezes rales or rhonchi auscultated patient was not grunting as much this morning therefore auscultation was able to be performed more easily. Skin: Positive pressure ulcers in the sacral area and lower extremities present on admission unchanged as reported by nursing GI: +bowel sounds x4, soft, compressible, non TTP patient did not grimace or show any signs of discomfort during palpation EXT: Bilateral contractures of the upper and lower extremities, +2 pitting edema in the left foot, +1 pitting edema in the right foot Psych: mood and affect were somnolent IVs and Medications Medications Reviewed: Medications were reviewed in detail Lab and Diagnostics Result Diagram: 08/30/16 0832 08/31/16 0455 Microbiology Microbiology GUSTAVO INFLUENZA RAPID AG SCREEN Final 08/27/16-1623 RESULT POSITIVE FOR FLU A NEGATIVE FOR FLU B This rapid assay is a screen test only for Influenza A&B and does not definitively rule out the presence of FLU A & B or other respiratory viral pathogens. The assay's sensitivity varies on the specimen type submitted. Nasal washes are optimum. Recommend respiratory viral cultures and DFA to confirm negative screens and rule out other viral pathogens. Per CDC, the sensitivity of this method is approximately 50% for H1N1. A negative result does NOT rule out Novel H1N1 (Swine Flu) TIME CALLED: 1623 FLOOR/DOCTOR: DEEPAK Sanz Name: EMMA LOPEZ Age/Sex: 80/F Attend Dr: Hoang Bonilla MD Acct: [id number] Unit: [id number] Status: ADM IN Location: [facility] [place] 1005-1 Re08/27/16 Disch: Specimen: [id number] Collected: 08/27/16 Status: COMP Req#: [id number] Received: 08/27/16 Source: URINE CC Sp Desc : PP Subm Dr: Jack Dejesus MD Ordered: URINE CULT Procedure Result Verified Site Microbiology GUSTAVO CULT URINE Final 08/28/16-908 Organism 1 MIXED UROGENITAL DEREK U COLONY COUNT/QUANTITY 50,000-100,000 CFU/ml Name: EMMA LOPEZ Age/Sex: 80/F Attend Dr: Hoang Bonilla MD Acct: [id number] Unit: [id number] Status: ADM IN Location: [facility] 1005-1 Re08/27/16 Disch: Specimen: [id number] Collected: 08/27/16 Status: RES Vinod#: [id number] Received: 08/27/16 Source: BLOOD Sp Desc : AA Subm Dr: Jack Dejesus MD Ordered: Comments: Collected by Nurse/Unit? Y/N N Procedure Result Verified Site Microbiology GUSTAVO CULTURE BLOOD Preliminary 08/28/16-180 Organism 1 POSITIVE BLOOD CULTURE GRAM STAIN RESULT GRAM POSITIVE COCCI ?STAPH BC BOTTLE Isolated from Aerobic Bottle of Set Drawn DATE CALLED: 08/28/16 TIME CALLED: 0948 CALLED BY: MACIEJ FLOOR/DOCTOR: FRANCIS FLORES READ BACK Y TYPE OF DRAW PERIPHERAL DRAW TIME OF POSITIVITY 0915 GRAM STAIN RESULT GRAM POSITIVE COCCI ?STAPH BC BOTTLE2 Isolated from Anaerobic Bottle of Set Drawn DATE CALLED: 08/28/16 TIME CALLED: 175 CALLED BY: MILENA FLOOR/DOCTOR: FRANCIS/SARBJIT FLORES READ BACK YES TYPE OF DRAW PERIPHERAL DRAW TIME OF POSITIVITY 1744 X-Rays, CTs and MRIs PROCEDURE: X-RAY CHEST ONE VIEW, PORTABLE ([id number]) INDICATIONS: CONFIRM DOBHOF TUBE PLACEMENT TECHNIQUE: One view of the chest was acquired. COMPARISON: [facility], CR, XR CHEST 1VW (PORTABLE), 08/27/2016, 13: 53. FINDINGS: Surgical changes and devices: Interval placement of feeding tube is present with distal tip below the left hemidiaphragm. Lungs and pleura: No pleural effusions or pneumothorax. Lungs are clear, noting incomplete evaluation of left base secondary to patient's overlying hand.. Mediastinum: Mediastinal contours appear normal. Heart size is normal. Bones and chest wall: No suspicious bony lesions. Overlying soft tissues appear unremarkable. IMPRESSION: Feeding tube placement as above. Dictated by: Astrid Avalos M.D. on 08/28/2016 at 16:47 Assessment & Plan 80-year-old female, with baseline aphasia/contractures, admitted for sepsis due to UTI and Influenza A. Influenza A positive, contractured arm obscures chest x-ray findings -- Continue Tamiflu via feeding tube. -- Continue Duo neb treatments Bacteremia with gram-positive cocci -- Could be due to pneumonia superinfection after influenza A. -- Could be due to urinary tract infection with bacteremia -- Continue Rocephin -- Discontinue vancomycin -- Continue vancomycin for further coverage as per pharmacy -- Blood cultures show gram-positive staphylococci sensitivity to Rocephin UTI probably secondary to indwelling catheter -- Currently on Rocephin -- Chronic indwelling catheter changed -- Urine cultures showed mixed urogenital derek Hyponatremia-resolved -- Sodium 138 today yesterday 135 -- Continue tube feeding -- Hyponatremia was most likely secondary to malnutrition, however now that the patient has started tube feedings seems to have corrected the problem Functional quadriplegia present on admission --Debilitating CVA, bedbound, aphasic, contractured limbs -- PT consulted and would appreciate any recommendations Aspiration risk -- Continue D5 1/2NS with 20K at 75 mL an hour -- NG tube in place continue recommendations from nutritional services. DVT prophylaxis lovenox . GI prophylaxis with Protonix. Code DNR. POLST Form in chart Disposition patient is scheduled to be discharged on Saturday to a SNF. GI Prophylaxis: Proton Pump Inhibitor VTE Prophylaxis: Sub-Q Enoxaparin VTE Mechanical Devices: Intermittant Pneumatic CD Resuscitation Status: DNR/DNI:Do Not Resuscitate/Intubate Ladan Zavala DO Sep 02, 2016 14:56
--- NOTE | 2016-09-02 16:02 | NUR ---
Social work: PEDRO PEDRO signed by patient's daughter
--- NOTE | 2016-09-02 19:27 | NUR ---
activity/pain Q2 hour turns done, heals up floated on pillows, PO Tylenol administered through feeding tube for discomfort, pt appears to be resting peacefully. pt had 1 soft BM this shift.
[2016-09-03] VITALS (7 sets, daily range): BP systolic 102–150; BP diastolic 57–66; PULSE 72–87; RESP 16–22; O2SAT 95–97
--- NOTE | 2016-09-03 05:18 | NUR ---
Skin integrity Continuing with Q2 hour turns, heels floated, mepilex protecting pressure ulcers and pressure areas. Tylenol given for comfort, pt occasionally exhibits signs of pain with turns. Frequent checks as pt cannot use call light.
[2016-09-03] MEDS: D5 0.45% NaCl + KCl 20 mEq/L 1,000 ML IV SCH ×2 (06:16→20:31)
[2016-09-03] MEDS: Pantoprazole 4 mg/mL 10 mL Inj IVPUSH SCH (06:46)
--- NOTE | 2016-09-03 09:22 | NUR ---
Spoke with Bina at [facility] [phone] and she is accepting patient but currently they are not taking in new patients. Bina is saying Saturday will be the day for admit. She will be calling to check in and if there is a sooner admit date we will know right away. Spoke with Camelia SALMERON at [facility] and asked her to review patient to see if she meets criteria. If [facility] is not authorizing patient then family will pay privately. Due to the complex medical issues and spouses need for SNF, this was discussed with PROCESS CONTROL TECHNICIAN cabinetmaker supervisor. Updated PROCESS CONTROL TECHNICIAN
[2016-09-03] MEDS: Albuterol-Ipratropium 3 mL Inhalation Solution NEB SCH ×4 (09:49→22:09)
--- NOTE | 2016-09-03 09:56 | NUR ---
NUTRITION FOLLOW-UP: ASSESS: 80 YO F admitted for sepsis due to UTI and influenza A. Pt is non-verbal at baseline and has chronic dysphagia. Per H&P, pt is fed by her via a syringe w/ pureed foods. ST has evaluated pt and made her strict NPO. TF was started 08/28, pt continues to tolerate well at goal rate. Per pt's , he does not desire long-term nutrition support for pt but wants it temporarily to help pt recover from current infection and flu. PMHX: CVA, Dementia LABS: Reviewed. No new labs. MEDS: Reviewed. GI: 1 BM 09/03. SKIN: Tello 9. Stg 2 PU on RLE and sacral area CURRENT WT: 70.2 kg, BMI 24.2 kg/m2, Admit wt 50.8 kg (Possible wt difference due to different bed scales) NUTRITION SUPPORT: Jevity 1.5 @ 60 ml/hr to provide 2070 kcal and 88 g protein (100% estimated needs). Flush 40ml q 4 hrs while on IVF. If IVF stopped, recommend increase fluid flush to 85ml q 3hrs. DIET: Strict NPO per ST ESTIMATED NEEDS: stg 2 PU Calories: 2911-7772 kcal/day (30-35 kcal/kg BW) Protein: 75-100 g/day (1.2-1.5 g/kg BW) Fluids: 1950 ml/day (1 ml/kcal/kg) NUTRITION DIAGNOSIS: 1.) Inadequate oral intake related to decreased ability to consume sufficient energy as evidenced by current NPO status and need for TF to provide adequate nutrition--IMPROVING 2.) Chew/swallow difficulty related to chronic aphasia and dysphagia as evidence by strict NPO diet order per --PERSISTS NUTRITION INTERVENTION: 1.) Recommend continuing Jevity 1.5 @ 60 ml/hr 2.) Diet advance per ST 3.) Will continue to monitor desire for nutrition support, will d/c if no longer desired by pt's . MONITOR/EVALUATE: ST, TF tolerance, labs, wt, POC, nutrition status. Follow per high nutrition risk guidelines.
[2016-09-03] MEDS: cefTRIAXone Inj 1,000 MG in Dextrose 5% Minibag Plus 50 ML IV SCH (10:10)
--- NOTE | 2016-09-03 11:00 | PCM.DIMED ---
Discharge Instructions Date of Service Sep 03, 2016 Dates of Hospitalization Aug 27, 2016 at 17:25 Discharge Diagnosis Discharge Diagnosis Influenza A positive Bacteremia with gram-positive cocci (resolved) UTI probably secondary to indwelling catheter Hyponatremia-(resolved) Functional quadriplegia present on admission Diet Other (NG tube feedings continuous at 60ml an hour) Activity Other (as tolerated) Call your provider Fever or Chills, Bleeding, Excessive diarrhea, Weakness (unilateral) Patient Instructions Follow-up with PCP in: 1 week Ladan Zavala DO Sep 03, 2016 11:00
--- NOTE | 2016-09-03 14:18 | PCM.DC.MED ---
Discharge Summary Date of Service Sep 03, 2016 Dates of Hospitalization Date of Hospital Admission Aug 27, 2016 at 17:25 Date of Discharge: Sep 03, 2016 Providers: Admitting Physician: Alissa Bonilla MD Primary Care Physician: Caesar Denis MD Attending Physician: Alissa Bonilla MD Diagnosis at Time of Discharge Diagnosis at Time of Discharge Influenza A positive Bacteremia with gram-positive cocci (resolved) UTI probably secondary to indwelling catheter Hyponatremia-(resolved) Functional quadriplegia present on admission Procedures XRay, CTs & MRIs PROCEDURE: X-RAY CHEST ONE VIEW, PORTABLE ([id number]) INDICATIONS: CONFIRM DOBHOF TUBE PLACEMENT TECHNIQUE: One view of the chest was acquired. COMPARISON: [facility], CR, XR CHEST 1VW (PORTABLE), 08/27/2016, 13: 53. FINDINGS: Surgical changes and devices: Interval placement of feeding tube is present with distal tip below the left hemidiaphragm. Lungs and pleura: No pleural effusions or pneumothorax. Lungs are clear, noting incomplete evaluation of left base secondary to patient's overlying hand.. Mediastinum: Mediastinal contours appear normal. Heart size is normal. Bones and chest wall: No suspicious bony lesions. Overlying soft tissues appear unremarkable. IMPRESSION: Feeding tube placement as above. Dictated by: Astrid Avalos M.D. on 08/28/2016 at 16:47 Brief History 80 yo female patient with longstanding dementia dating back 12-15 yrs with a subsequent series of strokes leaving her bedbound and completely dependent on her for care. She has been under his care for 8-9 years and at this point is being fed by syringe. Family feels she is able to recognize them and does not like strangers to feed her. Patient and her started to develop fever and weakness. He fell and sustained a hip fracture-and medics noted that his would need transport due to need of care. Since hospitalized she has confirmed influenza, febrile, modest pyuria but only mixed growth on culture and BC-both bottles +GPC. Eval by speech for swallowing-failed in that she aspirated. Decision by her was to try for a short term feeding tube and see if recovery from influenza would improve swallowing Her is adamant- no meal grinder tender feeding tube will be considered. Same re DNR/DNI status--POLST form notes this with limited interventions. Feeding tube ? not addressed on form. Hospital Course 80-year-old female, with baseline aphasia/contractures, admitted for sepsis due to UTI and Influenza A. Patient was treated with Tamiflu and Rocephin and responded well to treatment. 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 The patient had a speech and swallow evaluation which showed that the patient could not tolerate being fed through a syringe and is an aspiration risk and so it was thought to feed the patient through an NG tube for comfort and nutrition. The patient has been afebrile and stable and will be discharged to a SNF in stable condition. Exam Vital Signs (Last) Date Time Temp Pulse Resp B/P Pulse Ox O2 Delivery O2 Flow Rate FiO2 09/03/16 09:49 78 20 97 Room Air 09/03/16 05:39 36.5 102/61 Exam Physical Exam: GEN: Patient was in no acute distress HEENT: PERRLA, EOMI, Neck soft supple, trachea midline, nomocephalic/atraumatic , NG tube in place CV: +S1/S2, RRR, systolic murmur auscultated Respiratory: Clear to auscultation bilaterally, no wheezes rales or rhonchi auscultated patient was not grunting as much this morning therefore auscultation was able to be performed more easily. Skin: Positive pressure ulcers in the sacral area and lower extremities present on admission unchanged as reported by nursing GI: +bowel sounds x4, soft, compressible, non TTP patient did not grimace or show any signs of discomfort during palpation EXT: Bilateral contractures of the upper and lower extremities, +2 pitting edema in the left foot, +1 pitting edema in the right foot Psych: mood and affect were somnolent Test 08/27/16 14:55 08/27/16 15:40 08/29/16 05:03 08/30/16 08:32 Lactic Acid Level 1.4mmol/L (0.4-2.0) Urine Color Yellow (YELLOW) Urine Appearance Slightly cloudy Urine pH 7.0 (5.0-8.0) Urine Specific [place] 1.025 (1.003-1.035) Urine Protein 30mg/dL (NEG,TRACE) Urine Glucose (UA) Negativemg/dL (NEGATIVE) Urine Ketones Tracemg/dL (NEGATIVE) Urine Occult Blood Moderate (NEGATIVE) Urine Nitrite Positive (NEGATIVE) Urine Bilirubin Negative (NEGATIVE) Urine Urobilinogen Normalmg/dL (NORMAL) Urine Leukocyte Esterase Small (NEGATIVE) Urine RBC 3-10/hpf (0-2) Urine WBC 0-5/hpf (0-5) Urine Epithelial Cells None/hpf (NONE-MOD) Urine Crystals None seen (NONE SEEN) Urine Bacteria Moderate/hpf (NONE-FEW) Urine Hyaline Casts None/lpf (NONE) Urine Granular Casts None seen (NONE SEEN) Urine Waxy Casts None seen (NONE SEEN) Urine Red Blood Cell Casts None seen (NONE SEEN) Urine White Blood Cell Casts None seen (NONE SEEN) Urine Mucus None seen (None Seen) Urine Trichomonas None seen (NONE SEEN) Urine Yeast None (NONE SEEN) Urinalysis Comment None Urine Culture Reflexed Indicated Neutrophils (%) (Auto) 55.5% (40-74) Lymphocytes (%) (Auto) 29.9% (14-46) Monocytes (%) (Auto) 14.1% (4-12) Eosinophils (%) (Auto) 0% (0-5) Basophils (%) (Auto) 0.5% (0-3) Erythrocyte Sedimentation Rate 17mm/hr (0-40) Phosphorus Level 2.5mg/dL (2.5-4.9) Magnesium Level 1.8mg/dL (1.6-2.6) C-Reactive Protein 4.1mg/dL (0.0-0.5) Procalcitonin 0.10ng/mL (See Comment) Thyroid Stimulating Hormone (TSH) 1.180uIU/mL (0.450-4.500) White Blood Count 3.1th/mm3 (3.8-10.1) Red Blood Count 3.96mil/mm3 (3.90-5.20) Hemoglobin 11.9g/dL (12.0-15.6) Hematocrit 37.3% (35.0-46.0) Mean Corpuscular Volume 94.2fL (81-100) Mean Corpuscular Hemoglobin 30.1pg (27.0-35.0) Mean Corpuscular Hemoglobin Concent 31.9% (32.0-37.0) Red Cell Distribution Width 14.1% (12.3-15.4) Platelet Count 233bil/L (150-400) Total Bilirubin 0.2mg/dL (0.0-1.2) Aspartate Amino Transf (AST/SGOT) 17U/L (0-50) Alanine Aminotransferase (ALT/SGPT) 16U/L (0-32) Alkaline Phosphatase 67U/L (25-165) Total Protein 5.2g/dL (6.4-8.4) Albumin 2.7g/dL (3.4-5.0) Prealbumin 14mg/dL (20-40) Test 08/31/16 04:55 09/01/16 10:27 Sodium Level 138mEq/L (134-144) Potassium Level 4.8mEq/L (3.5-5.2) Chloride Level 104mEq/L (97-108) Carbon Dioxide Level 25mmol/L (18-29) Blood Urea Nitrogen 17mg/dL (8-27) Creatinine 0.39mg/dL (0.57-1.00) Estimat Glomerular Filtration Rate 227mL/min (>59) Glucose Level 130mg/dL (60-99) Calcium Level 7.9mg/dL (8.5-10.1) Vancomycin Level Trough 8.6mcg/mL Microbiology Results Microbiology [facility] INFLUENZA RAPID AG SCREEN Final 08/27/16-1622 RESULT POSITIVE FOR FLU A NEGATIVE FOR FLU B This rapid assay is a screen test only for Influenza A&B and does not definitively rule out the presence of FLU A & B or other respiratory viral pathogens. The assay's sensitivity varies on the specimen type submitted. Nasal washes are optimum. Recommend respiratory viral cultures and DFA to confirm negative screens and rule out other viral pathogens. Per CDC, the sensitivity of this method is approximately 50% for H1N1. A negative result does NOT rule out Novel H1N1 (Swine Flu) TIME CALLED: 1623 FLOOR/DOCTOR: SAVANNAH/NAREN Sanz Name: EMMA LOPEZ Age/Sex: 80/F Attend Dr: Hoang Bonilla MD Acct: [id number] Unit: [id number] Status: ADM IN [place] [facility] [place]5-1 Re08/27/16 Disch: Specimen: [id number] Collected: 08/27/16-1539 Status: COMP Req#: [id number] Received: 08/27/16160 Source: URINE CC Sp Desc : DELMY Justice Dr: Jack Dejesus MD Ordered: URINE CULT Procedure Result Verified Site Microbiology GUSTAVO CULT URINE Final 08/28/16-908 Organism 1 MIXED UROGENITAL CORETTA U COLONY COUNT/QUANTITY 50,000-100,000 CFU/ml Name: EMMA LOPEZ Age/Sex: 80/F Attend Dr: Hoang Bonilla MD Acct: [id number] Unit: [id number] Status: ADM IN [place] [facility] [place]5-1 Re08/27/16 Disch: Specimen: [id number] Collected: 08/27/16 Status: RES Req#: [id number] Received: 08/27/16160 Source: BLOOD Sp Desc : AA Reshma Dr: Jack Dejesus MD Ordered: Comments: Collected by Nurse/Unit? Y/N N Procedure Result Verified Site Microbiology GUSTAVO CULTURE BLOOD Preliminary 08/28/16-180 Organism 1 POSITIVE BLOOD CULTURE GRAM STAIN RESULT GRAM POSITIVE COCCI ?STAPH BC BOTTLE Isolated from Aerobic Bottle of Set Drawn DATE CALLED: 08/28/16 TIME CALLED: 0948 CALLED BY: MACIEJ FLOOR/DOCTOR: FRANCIS FLORES READ BACK Y TYPE OF DRAW PERIPHERAL DRAW TIME OF POSITIVITY 0915 GRAM STAIN RESULT GRAM POSITIVE COCCI ?STAPH BC BOTTLE2 Isolated from Anaerobic Bottle of Set Drawn DATE CALLED: 08/28/16 TIME CALLED: 1759 CALLED BY: MILENA FLOOR/DOCTOR: FRANCIS/SARBJIT Frances BC READ BACK YES TYPE OF DRAW PERIPHERAL DRAW TIME OF POSITIVITY 1744 Discharge Medications Discharge Medications ([unknown laxative]) 1 DOSE PO DAILY (Reported) Followup Plan Disposition: Stable condition discharged to SNF Discharge Diet: Other (NG tube feedings continuous at 60ml an hour) Discharge Activity: Other (as tolerated) Follow-up with PCP in: 1 week Time spent Greater than 30 minutes to coordinate discharge Ladan Zavala DO Sep 03, 2016 11:04
--- NOTE | 2016-09-03 15:34 | NUR ---
Loadmaster: Loadmaster spoke with patient's son and notified him that [facility] was not able to accept the patient until Saturday. He voiced understanding. SW will continue to follow. Mary Louise, DHEERAJ, ACM
--- NOTE | 2016-09-03 19:50 | NUR ---
Communication barriers/mobility Patient non verbal occasionally grunts or moans out at times. Pt needs full care , needs q 2 turning. Skin integrity is poor, has very bony prominences that have Mepilex dressing over them ( scapulas, coccyx, right lateral calf x2, red dry boggy heels). Pt on feedings via Dobbhoff feeding tube via nasal gastric, pt tolerating feedings with minimal residual.
[2016-09-04 05:00] VITALS: BP 115/67; PULSE 77; RESP 20; O2SAT 98
--- NOTE | 2016-09-04 05:15 | NUR ---
Skin care Continuing with Q2 hour turns, heels floated, mepilex protecting pressure ulcers and pressure areas. Tylenol given for comfort, pt occasionally exhibits signs of pain with turns. Frequent checks as pt cannot use call light.
[2016-09-04] MEDS: D5 0.45% NaCl + KCl 20 mEq/L 1,000 ML IV SCH ×2 (06:21→16:00)
[2016-09-04] MEDS: Pantoprazole 4 mg/mL 10 mL Inj IVPUSH SCH (06:21)
[2016-09-04 07:55] VITALS: PULSE 78; RESP 20; O2SAT 95
[2016-09-04] MEDS: Albuterol-Ipratropium 3 mL Inhalation Solution NEB SCH ×4 (07:55→19:34)
[2016-09-04] MEDS: cefTRIAXone Inj 1,000 MG in Dextrose 5% Minibag Plus 50 ML IV SCH (10:06)
--- NOTE | 2016-09-04 10:48 | NUR ---
Palliative care note D/A: Pt was followed by PC with PC signing off on 08/31/16. Plan at that time was for placement at [facility]. Pt had tested positive for flu virus around time of medical stability for placement and facility had asked for placement on Saturday09/03/16. Case discussed in rounds today, facility now not able to take as may be on admissions divert due to facility flu. Estimated placement is Saturday09/07/16. POLST completed with PC on 08/30/16. Pt listed as DNR/DNI with limited additional measures. Determine use of antibiotics when infections occurs with comfort as goal and open to trial of medically assisted nutrition by tube, short term only. POLST faxed to [facility] today. P: No further need for PC to follow. Sandra FRY, CCM
--- NOTE | 2016-09-04 11:33 | NUR ---
Social Work Continued Discharge Planning: SW acknowledged order for discharge for 09/03/16. Plan is SNF placement at [facility]. SW spoke to [facility] rep Bina, to confirm bed availability status. Per rep no bed available at this time as a result to Flu. Per rep, bed to be available on Saturday for patient and patient's . SW will continue to follow pending bed status. PLAN: Accepted at [facility], pending bed availability on Saturday. SW to follow. Max HERNANDEZ
[2016-09-04 11:44] VITALS: PULSE 86; RESP 20; O2SAT 96
[2016-09-04 13:40] VITALS: BP 110/67; PULSE 86; RESP 18; O2SAT 97
--- NOTE | 2016-09-04 15:13 | PCM.PNMED ---
Subjective Date of Service Sep 04, 2016 Subjective Patient was seen and examined no new events. Exam Vital Signs Vital Sign - Last Date Time Temp Pulse Resp B/P Pulse Ox O2 Delivery O2 Flow Rate FiO2 09/04/16 11:44 86 20 96 Room Air 09/04/16 05:00 36.8 115/67 Intake and Output 09/03/16 09/03/16 09/04/16 Cumulative From/Thru 15:00 23:00 07:00 08/27/16 16:30 - 09/04/16 06:20 Intake Total 1740 ml 1974 ml 11640 ml Output Total 900 ml 550 ml 97293 ml Balance 840 ml 1424 ml 94480 ml Intake Oral 0 ml 0 ml 0 ml IV Total 870 ml 932 ml 15727 ml Tube Feeding 790 ml 796 ml 8048 ml Tube Irrigant 80 ml 246 ml 2503 ml Output Urine Total 900 ml 550 ml 53570 ml Stool Total 2 ml Gastric Drainage Total 0 ml 24 ml # Bowel Movements 2 2 14 Exam Physical Exam: GEN: Patient was in no acute distress HEENT: PERRLA, EOMI, Neck soft supple, trachea midline, nomocephalic/atraumatic , NG tube in place CV: +S1/S2, RRR, systolic murmur auscultated Respiratory: Clear to auscultation bilaterally, no wheezes rales or rhonchi auscultated patient was not grunting as much this morning therefore auscultation was able to be performed more easily. Skin: Positive pressure ulcers in the sacral area and lower extremities present on admission unchanged as reported by nursing GI: +bowel sounds x4, soft, compressible, non TTP patient did not grimace or show any signs of discomfort during palpation EXT: Bilateral contractures of the upper and lower extremities, +2 pitting edema in the left foot, +1 pitting edema in the right foot Psych: mood and affect were somnolent IVs and Medications Medications Reviewed: Medications were reviewed in detail Medications Current Medications Ceftriaxone Sodium/Dextrose/ Water 50 ml @ 100 mls/hr Q24 IV Last administered on 09/04/16t 10:06; Admin Dose 100 MLS/HR; Start 09/03/16 at 08:30 Aspirin 325 mg DAILY PRN PO; Start 09/04/16 at 10:46 Pantoprazole 40 mg 0630 PO; Start 09/05/16 at 06:30 Lab and Diagnostics Result Diagram: 08/30/16 0832 08/31/16 0455 Microbiology Microbiology [facility] INFLUENZA RAPID AG SCREEN Final 08/27/16-1623 RESULT POSITIVE FOR FLU A NEGATIVE FOR FLU B This rapid assay is a screen test only for Influenza A&B and does not definitively rule out the presence of FLU A & B or other respiratory viral pathogens. The assay's sensitivity varies on the specimen type submitted. Nasal washes are optimum. Recommend respiratory viral cultures and DFA to confirm negative screens and rule out other viral pathogens. Per CDC, the sensitivity of this method is approximately 50% for H1N1. A negative result does NOT rule out Novel H1N1 (Swine Flu) TIME CALLED: 1623 FLOOR/DOCTOR: SAVANNAH/NAREN Sanz Name: EMMA LOPEZ Age/Sex: 80/F Attend Dr: Hoang Bonilla MD Acct: [id number] Unit: [id number] Status: ADM IN Location: [facility] [place] 1005-1 Re08/27/16 Disch: Specimen: [id number] Collected: 08/27/16 Status: COMP Req#: [id number] Received: 08/27/16160 Source: URINE CC Sp Desc : DELMY Justice Dr: Jack Dejesus MD Ordered: URINE CULT Procedure Result Verified Site Microbiology GUSTAVO CULT URINE Final 08/28/16 Organism 1 MIXED UROGENITAL DEREK U COLONY COUNT/QUANTITY 50,000-100,000 CFU/ml Name: EMMA LOPEZ Age/Sex: 80/F Attend Dr: Hoang Bonilla MD Acct: [id number] Unit: [id number] Status: ADM IN Location: [facility] [place] 1005-1 Re08/27/16 Disch: Specimen: [id number] Collected: 08/27/16 Status: RES Req#: [id number] Received: 08/27/16 Source: BLOOD Sp Desc : ROB Justice Dr: Jack eDjesus MD Ordered: Comments: Collected by Nurse/Unit? Y/N N Procedure Result Verified Site Microbiology GUSTAVO CULTURE BLOOD Preliminary 08/28/16-1800 Organism 1 POSITIVE BLOOD CULTURE GRAM STAIN RESULT GRAM POSITIVE COCCI ?STAPH BC BOTTLE Isolated from Aerobic Bottle of Set Drawn DATE CALLED: 08/28/16 TIME CALLED: 947 CALLED BY: MACIEJ FLOOR/DOCTOR: FRANCIS Barbosa BC READ BACK Y TYPE OF DRAW PERIPHERAL DRAW TIME OF POSITIVITY 0915 GRAM STAIN RESULT GRAM POSITIVE COCCI ?STAPH BC BOTTLE2 Isolated from Anaerobic Bottle of Set Drawn DATE CALLED: 01/17/17 TIME CALLED: 1758 CALLED BY: MILENA FLOOR/DOCTOR: FRANCIS/SARBJIT Frances READ BACK YES TYPE OF DRAW PERIPHERAL DRAW TIME OF POSITIVITY 1743 X-Rays, CTs and MRIs PROCEDURE: X-RAY CHEST ONE VIEW, PORTABLE ([id number]) INDICATIONS: CONFIRM DOBHOF TUBE PLACEMENT TECHNIQUE: One view of the chest was acquired. COMPARISON: [facility], CR, XR CHEST 1VW (PORTABLE), 08/27/2016, 13: 53. FINDINGS: Surgical changes and devices: Interval placement of feeding tube is present with distal tip below the left hemidiaphragm. Lungs and pleura: No pleural effusions or pneumothorax. Lungs are clear, noting incomplete evaluation of left base secondary to patient's overlying hand.. Mediastinum: Mediastinal contours appear normal. Heart size is normal. Bones and chest wall: No suspicious bony lesions. Overlying soft tissues appear unremarkable. IMPRESSION: Feeding tube placement as above. Dictated by: Astrid Avalos M.D. on 08/28/2016 at 16:47 Assessment & Plan 80-year-old female, with baseline aphasia/contractures, admitted for sepsis due to UTI and Influenza A. Influenza A positive, contractured arm obscures chest x-ray findings -- Continue Tamiflu via feeding tube. -- Continue Duo neb treatments Bacteremia with gram-positive cocci -- Could be due to pneumonia superinfection after influenza A. -- Could be due to urinary tract infection with bacteremia -- Discontinue Rocephin patient has had a full course of antibiotics -- Discontinue vancomycin -- Continue vancomycin for further coverage as per pharmacy -- Blood cultures show gram-positive staphylococci sensitivity to Rocephin UTI probably secondary to indwelling catheter -- Currently on Rocephin -- Chronic indwelling catheter changed -- Urine cultures showed mixed urogenital derek Hyponatremia-resolved -- Sodium 138 today yesterday 135 -- Continue tube feeding -- Hyponatremia was most likely secondary to malnutrition, however now that the patient has started tube feedings seems to have corrected the problem Functional quadriplegia present on admission --Debilitating CVA, bedbound, aphasic, contractured limbs -- PT consulted and would appreciate any recommendations Aspiration risk -- Continue D5 1/2NS with 20K at 75 mL an hour -- NG tube in place continue recommendations from nutritional services. DVT prophylaxis lovenox . GI prophylaxis with Protonix. Code DNR. POLST Form in chart Disposition patient patient was scheduled to be discharged yesterday to a care home facility. This was set up last week however the care home facility that she was intended to go to apparently had an outbreak of flu and so they are no longer able to accept any patients so this Saturday. Patient is medically stable to be discharged but currently awaiting placement. GI Prophylaxis: Proton Pump Inhibitor VTE Prophylaxis: Sub-Q Enoxaparin VTE Mechanical Devices: Intermittant Pneumatic CD Resuscitation Status: DNR/DNI:Do Not Resuscitate/Intubate Ladan Zavala DO Sep 04, 2016 15:13
[2016-09-04 16:36] VITALS: PULSE 87; RESP 20; O2SAT 94
--- NOTE | 2016-09-04 18:32 | NUR ---
Skin integrity/dressing changes Patient with poor skin integrity. Patient has very bony prominences . Patient has open ulceration to coccyx area new mepilex applied . Pt also has on right lateral calf area , reddened area that has not quite opened yet but looks close, mepilex reapplied to this area, 2 other areas noted on outer aspect of knee bony areas red. Pt also has 2 mepilex to scapula areas. Pt turned q2 and placed on left heel
[2016-09-04 20:15] VITALS: BP 110/61; PULSE 82; O2SAT 96
--- NOTE | 2016-09-05 04:29 | NUR ---
Skin care Q2 hour turns continue for skin care, mepilex for protection. Tolerating tube feeds. able to visit during evening, pt is non-communicative at baseline. Frequent rounding ongoing.
[2016-09-05 05:31] VITALS: BP 119/70; PULSE 82; RESP 19; O2SAT 97
[2016-09-05 05:32] LABS: Mean Corpuscular Hemoglobin 30.3 pg (27.0-35.0); Mean Corpuscular Volume 95.6 fL (81-100)
[2016-09-05] MEDS: D5 0.45% NaCl + KCl 20 mEq/L 1,000 ML IV SCH (06:08)
[2016-09-05] MEDS ORDERED: Pantoprazole 40 mg ER24 Tablet PO SCH (06:30)
[2016-09-05] MEDS: Albuterol-Ipratropium 3 mL Inhalation Solution NEB SCH ×2 (08:25→12:13)
[2016-09-05 08:27] VITALS: PULSE 87; RESP 20; O2SAT 94
[2016-09-05] MEDS ORDERED: Pantoprazole 4 mg/mL 10 mL Inj IVPUSH SCH (08:30)
--- NOTE | 2016-09-05 10:45 | NUR ---
Social Work Continued Discharge Planning: LUIS conducted discharge planning update. Plan is SNF placement at [facility]. LUIS spoke to SNF rep Bina, who states that patient accepted to SNF today as bed available. REBECCA specialist working on [employer] auth for transfer today. Facility able to accept patient with NF tube. LUIS to follow for auth today for transfer. PLAN: [facility] today pending auth and clinical course. Max HERNANDEZ Addendum: 09/05/16 at 1123 by RAINE OWUSU Auth obtained from [employer]. PASSR completed. REBECCA specialist to coordinate transport to facility via BLS for transfer today. SW to follow. Max HERNANDEZ Addendum: 09/05/16 at 1410 by RAINE OWUSU Transport arranged for pickler helper at 3:30pm today. Family aware. Max HERNANDEZ Addendum: 09/05/16 at 1437 by RAINE OWUSU Transport arranged for pickler helper at 2:45pm. No other needs identified. Family in agreement. LUIS faxed discharge linette. Max HERNANDEZ
--- NOTE | 2016-09-05 10:52 | NUR ---
Called and left message for Camelia Miller CM at [facility], let her know patient has available bed today at [facility] and that she will be going with NG tube in per husbands wishes no PEG will be placed. Spouse and patient are scheduled to transfer today. Updated DOCKET CLERK Addendum: 09/05/16 at 1119 by JACKELYN GOMEZ CM Patient has been approved for transfer today to [facility]. [facility] is accepting. Updated DOCKET CLERK
[2016-09-05 10:59] VITALS: BP 146/74; PULSE 95; RESP 20; O2SAT 96
[2016-09-05 12:15] VITALS: PULSE 80; RESP 20; O2SAT 96
[2016-09-05 12:30] VITALS: RESP 16
--- NOTE | 2016-09-05 14:09 | PCM.DIMED ---
Discharge Instructions Date of Service Sep 05, 2016 Dates of Hospitalization Aug 27, 2016 at 17:25 Discharge Diagnosis Discharge Diagnosis Influenza A positive Bacteremia with Coagulase negative Staph vs Contaminant (resolved) UTI probably secondary to indwelling catheter Hyponatremia-(resolved) Functional quadriplegia present on admission Diet Other (NG tube feedings continuous at 60ml an hour) Activity Other (as tolerated) Call your provider Fever or Chills, Bleeding, Excessive diarrhea, Weakness (unilateral) Patient Instructions Follow-up with PCP in: 1 week Geovanny Morales MD Sep 05, 2016 14:09
[2016-09-05] MEDS ORDERED: Al Hydrox/Mg Hydrox/Simeth PO (14:21)
[2016-09-05] MEDS ORDERED: Aspirin-Expunged Drug, Do Not Renew! PO (14:21)
[2016-09-05] MEDS ORDERED: IPRA3AMP NEB (14:21)
[2016-09-05] MEDS ORDERED: ENOX40DI8 SUBQ (14:21)
--- NOTE | 2016-09-05 14:37 | NUR ---
Arranged BLS transport for 1445 via [facility] for transfer to [facility] in [place]. Updated COILED COIL INSPECTOR and RN
--- NOTE | 2016-09-05 14:56 | NUR ---
spiritual care: follow caring visit, pt sleeping; peaceful. Reported on this visit to who was appreciative.
--- NOTE | 2016-09-05 15:08 | NUR ---
Discharge Pt discharged to [facility] via ambulance service at 1450 hrs. PIV removed intact. VSS. Oneill catheter in place. Dobhoff feeding tube patent and secured to pt's nose. All personal possessions sent with pt. Addendum: 09/05/16 at 1511 by JERRY DESIR RN Report was called to Iraida at [facility] at 1505.
--- NOTE | 2016-09-06 00:22 | PCM.DC.MED ---
Discharge Summary Date of Service Sep 05, 2016 Dates of Hospitalization Date of Hospital Admission Aug 27, 2016 at 17:25 Date of Discharge: Sep 05, 2016 Providers: Admitting Physician: Alissa Bonilla MD Primary Care Physician: Caesar Denis MD Attending Physician: Alissa Bonilla MD Diagnosis at Time of Discharge Diagnosis at Time of Discharge Influenza A positive Bacteremia with Coagulase negative Staph vs Contaminant (resolved) UTI probably secondary to indwelling catheter Hyponatremia-(resolved) Functional quadriplegia present on admission Procedures XRay, CTs & MRIs PROCEDURE: X-RAY CHEST ONE VIEW, PORTABLE ([id number]) INDICATIONS: CONFIRM DOBHOF TUBE PLACEMENT TECHNIQUE: One view of the chest was acquired. COMPARISON: [facility], CR, XR CHEST 1VW (PORTABLE), 08/27/2016, 13: 53. FINDINGS: Surgical changes and devices: Interval placement of feeding tube is present with distal tip below the left hemidiaphragm. Lungs and pleura: No pleural effusions or pneumothorax. Lungs are clear, noting incomplete evaluation of left base secondary to patient's overlying hand.. Mediastinum: Mediastinal contours appear normal. Heart size is normal. Bones and chest wall: No suspicious bony lesions. Overlying soft tissues appear unremarkable. IMPRESSION: Feeding tube placement as above. Dictated by: Astrid Avalos M.D. on 08/28/2016 at 16:47 Brief History 80-year-old female with CVAs/dementia/nonverbal/contractures/fed by mouth syringe by primary restorative care technician her , presented to the emergency department with fever 102, respiratory rate 25. EMS bolused 1 L normal saline. Indwelling Oneill is cloudy. indicates that she never has had UTIs. Has been does not seem to be the best historian as he is ill as well. In the ER 198/120, T102, respiratory rate 30s, sinus rhythm 112, no hypoxia. Chest x-ray negative, influenza positive since is also influenza positive. Patient was admitted to the hospitalist service. Hospital Course 80-year-old female, with baseline aphasia/contractures, admitted for sepsis due to UTI and Influenza A. Influenza A positive, contractured arm obscures chest x-ray findings -- Continue Tamiflu via feeding tube. -- Continue Duo neb treatments Bacteremia with gram-positive cocci -- Could be due to pneumonia superinfection after influenza A. -- Could be due to urinary tract infection with bacteremia -- Discontinue Rocephin patient has had a full course of antibiotics -- Discontinue vancomycin -- Continue vancomycin for further coverage as per pharmacy -- Blood cultures show gram-positive staphylococci sensitivity to Rocephin UTI probably secondary to indwelling catheter -- Treated adequately with Rocephin -- Chronic indwelling catheter changed -- Urine cultures showed mixed urogenital coretta Hyponatremia-resolved -- Sodium 138 today yesterday 135 -- Continue tube feeding -- Hyponatremia was most likely secondary to malnutrition, however now that the patient has started tube feedings seems to have corrected the problem Functional quadriplegia present on admission --Debilitating CVA, bedbound, aphasic, contractured limbs -- PT consulted and would appreciate any recommendations Aspiration risk -- May discontinue IV fluids -- NG tube in place continue recommendations from nutritional services. She is at goal at with tube feeding at 60 mL an hour. DVT prophylaxis lovenox . GI prophylaxis with Protonix. Code DNR. POLST Form in chart Disposition: Patient is stable and ready for discharge to [facility] today. Exam Vital Signs (Last) Date Time Temp Pulse Resp B/P Pulse Ox O2 Delivery O2 Flow Rate FiO2 09/05/16 12:30 16 09/05/16 12:15 80 96 Room Air 09/05/16 10:59 36.8 146/74 Exam General: Patient is much more responsive today compared to when I saw her last week, she is exhibiting more facial expressions and appears more comfortable. The patient is laying supine in bed with flexion contractures HEENT: Head is atraumatic normocephalic. Eyes: Pupils are equally round and reactive to light and accommodation. Extraocular muscles could not be tested. Sclera are white anicteric. Subconjunctival mucosa is pink. Ears and nose are unremarkable, except for an NG tube which is in place and site is unremarkable.. Oropharynx: Is very difficult to visualize. Neck: Is fairly supple, there are no nodes, or masses or tenderness. Chest: Sounds are very coarse with upper airway congestion. Therefore, difficult to discern type of lower adventitious sounds Heart: Rate, rhythm is regular. There is no murmur, rub or gallop. Abdomen: Good bowel sounds are present. Abdomen is soft, nontender, no organomegaly or masses were appreciated. Extremities: Are symmetrical and well perfused. There is no edema, there is no cellulitis, no rash. Neurologic: There are no focal neurological deficits. Cranial nerves II through XII are intact. There are no sensory or motor deficits. Psychiatric: Patients mood is calm and shows no sign of agitation. Genital: Deferred Rectal: Deferred Test 08/27/16 14:55 08/27/16 15:40 08/29/16 05:03 08/30/16 08:32 Lactic Acid Level 1.4mmol/L (0.4-2.0) Urine Color Yellow (YELLOW) Urine Appearance Slightly cloudy Urine pH 7.0 (5.0-8.0) Urine Specific Faulkner 1.025 (1.003-1.035) Urine Protein 30mg/dL (NEG,TRACE) Urine Glucose (UA) Negativemg/dL (NEGATIVE) Urine Ketones Tracemg/dL (NEGATIVE) Urine Occult Blood Moderate (NEGATIVE) Urine Nitrite Positive (NEGATIVE) Urine Bilirubin Negative (NEGATIVE) Urine Urobilinogen Normalmg/dL (NORMAL) Urine Leukocyte Esterase Small (NEGATIVE) Urine RBC 3-10/hpf (0-2) Urine WBC 0-5/hpf (0-5) Urine Epithelial Cells None/hpf (NONE-MOD) Urine Crystals None seen (NONE SEEN) Urine Bacteria Moderate/hpf (NONE-FEW) Urine Hyaline Casts None/lpf (NONE) Urine Granular Casts None seen (NONE SEEN) Urine Waxy Casts None seen (NONE SEEN) Urine Red Blood Cell Casts None seen (NONE SEEN) Urine White Blood Cell Casts None seen (NONE SEEN) Urine Mucus None seen (None Seen) Urine Trichomonas None seen (NONE SEEN) Urine Yeast None (NONE SEEN) Urinalysis Comment None Urine Culture Reflexed Indicated Neutrophils (%) (Auto) 55.5% (40-74) Lymphocytes (%) (Auto) 29.9% (14-46) Monocytes (%) (Auto) 14.1% (4-12) Eosinophils (%) (Auto) 0% (0-5) Basophils (%) (Auto) 0.5% (0-3) Erythrocyte Sedimentation Rate 17mm/hr (0-40) Phosphorus Level 2.5mg/dL (2.5-4.9) Magnesium Level 1.8mg/dL (1.6-2.6) C-Reactive Protein 4.1mg/dL (0.0-0.5) Procalcitonin 0.10ng/mL (See Comment) Thyroid Stimulating Hormone (TSH) 1.180uIU/mL (0.450-4.500) Total Bilirubin 0.2mg/dL (0.0-1.2) Aspartate Amino Transf (AST/SGOT) 17U/L (0-50) Alanine Aminotransferase (ALT/SGPT) 16U/L (0-32) Alkaline Phosphatase 67U/L (25-165) Total Protein 5.2g/dL (6.4-8.4) Albumin 2.7g/dL (3.4-5.0) Prealbumin 14mg/dL (20-40) Test 09/01/16 10:27 09/05/16 04:50 Vancomycin Level Trough 8.6mcg/mL White Blood Count 4.9th/mm3 (3.8-10.1) Red Blood Count 3.60mil/mm3 (3.90-5.20) Hemoglobin 10.9g/dL (12.0-15.6) Hematocrit 34.4% (35.0-46.0) Mean Corpuscular Volume 95.6fL (81-100) Mean Corpuscular Hemoglobin 30.3pg (27.0-35.0) Mean Corpuscular Hemoglobin Concent 31.7% (32.0-37.0) Red Cell Distribution Width 14.8% (12.3-15.4) Platelet Count 266bil/L (150-400) Sodium Level 139mEq/L (134-144) Potassium Level 4.9mEq/L (3.5-5.2) Chloride Level 102mEq/L (97-108) Carbon Dioxide Level 29mmol/L (18-29) Blood Urea Nitrogen 21mg/dL (8-27) Creatinine 0.38mg/dL (0.57-1.00) Estimat Glomerular Filtration Rate 233mL/min (>59) Glucose Level 121mg/dL (60-99) Calcium Level 8.4mg/dL (8.5-10.1) Microbiology Results Microbiology GUSTAVO INFLUENZA RAPID AG SCREEN Final 08/27/16-1622 RESULT POSITIVE FOR FLU A NEGATIVE FOR FLU B This rapid assay is a screen test only for Influenza A&B and does not definitively rule out the presence of FLU A & B or other respiratory viral pathogens. The assay's sensitivity varies on the specimen type submitted. Nasal washes are optimum. Recommend respiratory viral cultures and DFA to confirm negative screens and rule out other viral pathogens. Per CDC, the sensitivity of this method is approximately 50% for H1N1. A negative result does NOT rule out Novel H1N1 (Swine Flu) TIME CALLED: 1623 FLOOR/DOCTOR: SAVANNAH/NAREN Sanz Name: JOHNEMMA Age/Sex: 80/F Attend Dr: Hoang Bonilla MD Acct: [id number] Unit: [id number] Status: ADM IN Location: [facility] 1005-1 Re08/27/16 Disch: Specimen: [id number] Collected: 08/27/16 Status: COMP Req#: [id number] Received: 08/27/16 Source: URINE CC Sp Desc : PP Subm Dr: Jack Dejesus MD Ordered: URINE CULT Procedure Result Verified Site Microbiology GUSTAVO CULT URINE Final 08/28/16-09 Organism 1 MIXED UROGENITAL CORETTA U COLONY COUNT/QUANTITY 50,000-100,000 CFU/ml Name: EMMA LOPEZ Age/Sex: 80/F Attend Dr: Hoang Bonilla MD Acct: [id number] Unit: [id number] Status: ADM IN Location: [facility] 1005-1 Re08/27/16 Disch: Specimen: [id number] Collected: 08/27/16 Status: RES Req#: [id number] Received: 08/27/16-160 Source: BLOOD Sp Desc : ROB Justice Dr: Jack Dejesus MD Ordered: Comments: Collected by Nurse/Unit? Y/N N Procedure Result Verified Site Microbiology GUSTAVO CULTURE BLOOD Preliminary 08/28/16 Organism 1 POSITIVE BLOOD CULTURE GRAM STAIN RESULT GRAM POSITIVE COCCI ?STAPH BC BOTTLE Isolated from Aerobic Bottle of Set Drawn DATE CALLED: 08/28/16 TIME CALLED: 0948 CALLED BY: MACIEJ FLOOR/DOCTOR: FRANCIS Barbosa BC READ BACK Y TYPE OF DRAW PERIPHERAL DRAW TIME OF POSITIVITY 0915 GRAM STAIN RESULT GRAM POSITIVE COCCI ?STAPH BC BOTTLE2 Isolated from Anaerobic Bottle of Set Drawn DATE CALLED: 08/28/16 TIME CALLED: 1758 CALLED BY: MILENA FLOOR/DOCTOR: FRANCIS/SARBJIT Frances BC READ BACK YES TYPE OF DRAW PERIPHERAL DRAW TIME OF POSITIVITY 1743 Discharge Medications Discharge Medications ([unknown laxative]) 1 DOSE PO DAILY (Reported) Enoxaparin Sodium (Enoxaparin Sodium) 40 Mg/0.4 Ml Syringe 30 MG SUBQ DAILY Prescribed by: AVIS MORALES MD Ipratropium/Albuterol Sulfate (Iprat-Albut 0.5-3(2.5) mg/3 mL Inhalant Soln) 3 Ml Ampul.neb 3 ML NEB QIDWA Prescribed by: AVIS MORALES MD As needed ([Aspirin-Expunged Drug, Do Not Renew!]) 325 MG TABLET 325 MG PO DAILY PRN PRN For Pain Prescribed by: AVIS MORALES MD ([Al Hydrox/Mg Hydrox/Simeth]) 30 ML SUSP 30 ML PO Q6 PRN PRN For Dyspepsia or Heartburn Prescribed by: AVIS MORALES MD Followup Plan Disposition: Patient is being discharged to [facility]. Discharge Diet: Other (NG tube feedings continuous at 60ml an hour) Discharge Activity: Other (as tolerated) Follow-up with PCP in: 1 week Time spent Time spent on discharging this patient was greater than 35 minutes, over half of which was involved in counseling and coordination of care. Geovanny Morales MD Sep 06, 2016 00:21
== END 2016-09-05 14:56 | DRG 698 ==
LOC: SED 13:27 → OSC 16:50 → OBSVTOIN 17:25 → OSC 17:32
PROVIDERS: ADMIT Urology; ATTEND Urology
PROC: 0DH67UZ Insertion of Feeding Device into Stomach, Via Natural or Artificial Opening (ICD-10-PCS; principal; 2016-08-28)
PROC: 3E0G76Z Introduction of Nutritional Substance into Upper GI, Via Natural or Artificial Opening (ICD-10-PCS; 2016-08-28)
DX: T83.518A Infection and inflammatory reaction due to other urinary catheter, initial encounter (principal); A41.9 Sepsis, unspecified organism; R53.2 Functional quadriplegia; N39.0 Urinary tract infection, site not specified; E87.1 Hypo-osmolality and hyponatremia; J10.89 Influenza due to other identified influenza virus with other manifestations; Z86.73 Personal history of transient ischemic attack (TIA), and cerebral infarction without residual deficits; F03.90 Unspecified dementia, unspecified severity, without behavioral disturbance, psychotic disturbance, mood disturbance, and anxiety; Z66 Do not resuscitate; Z51.5 Encounter for palliative care; B95.8 Unspecified staphylococcus as the cause of diseases classified elsewhere; Z16.19 Resistance to other specified beta lactam antibiotics